=== PATIENT | female | born 1960 | race Hispanic/Latino ===

== ENCOUNTER 2018-03-16 11:21 | Inpatient (IN) | payer SELFPAY ==
[2018-03-16] MEDS ORDERED: Sodium Chloride 0.9% 1,000 ML IV STA (11:38)
--- NOTE | 2018-03-16 11:43 | ED PDOC ---
HPI: Altered Mental Status Time Seen by Provider: 03/16/18 11:32 Chief Complaint (Nursing): Altered Mental Status History Per: Family Onset/Duration Of Symptoms: Days (1) Current Symptoms Are (Timing): Still Present Additional Complaint(s): Brought by EMS accompamied by sons who state pt moaning and nonverbal since this AM. Has previous similar incidents after ? ingestion of meds, but family does not know if she took additional meds today or last night. Pt unable to provide hx due to being nonverbal. NIHSS Stroke Scale - How Severe is the Stroke Level of Consciousness: 0=Alert LOC to Questions: 2=Neither correct LOC to commands: 2=Neither correct Best Gaze: 0=Normal Visual: 0=No visual loss Facial: 0=Normal Motor Arm - Left: 0=No drift Motor Arm - Right: 0=No drift Motor Leg - Left: 0=No drift Motor Leg - Right: 0=No drift Limb Ataxia: 0=Absent Sensory: 0=Normal Best Language: 3=Mute Dysarthia: 0=Normal articulation Extinction & Inattention (Neglect): 0=Normal, no object Score: 7 Past Medical History Reviewed: Unable To Obtain Vital Signs: Last Vital Signs Temp 97.9 F 03/16/18 11:26 Pulse 94 H 03/16/18 11:26 Resp 16 03/16/18 11:26 BP 245/142 H 03/16/18 11:26 Pulse Ox 99 03/16/18 11:26 - Family History Family History: States: Unknown Family Hx - Home Medications Home Medications: Ambulatory Orders Medication Instructions Recorded Acetaminophen/Butalbital/Caf 1 tab PO Q4 PRN 03/16/18 [Fioricet] Albuterol Sulfate [Ventolin Hfa] 2 puff IH Q6 PRN 03/16/18 Baclofen [Lioresal] 10 mg PO Q12 PRN 03/16/18 Beclomethasone Dipropionate [Qvar 1 puff IH Q12 03/16/18 80 mcg] Cholecalciferol [Vitamin D 1000 IU] 1,000 unit PO DAILY 03/16/18 DULoxetine [Cymbalta] 30 mg PO DAILY 03/16/18 DULoxetine [Cymbalta] 60 mg PO DAILY 03/16/18 Doxylamine Succinate [Wal-Tyrone] 25 mg PO HS PRN 03/16/18 Famotidine [Pepcid] 20 mg PO BID 03/16/18 Gabapentin [Neurontin] 100 mg PO Q8 03/16/18 Melatonin 10 mg PO HS 03/16/18 Temazepam [Restoril] 30 mg PO HS 03/16/18 cloNIDine [Catapres] 0.3 mg PO Q12 03/16/18 clonazePAM [Klonopin] 0.5 mg PO DAILY PRN 03/16/18 - Allergies Allergies/Adverse Reactions: Allergies Allergy/AdvReac Type Severity Reaction Status Date / Time pollen extracts Allergy CONGESTION Verified 03/16/18 11:25 Review of Systems Review Of Systems: ROS cannot be obtained secondary to pt's inabilty to answer questions. Physical Exam - Reviewed Nursing Documentation Reviewed: Yes Vital Signs Reviewed: Yes - Physical Exam Appears: Positive for: Non-toxic, No Acute Distress Head Exam: Positive for: ATRAUMATIC, NORMAL INSPECTION, NORMOCEPHALIC Skin: Positive for: Normal Color, Warm, DRY Eye Exam: Positive for: EOMI, Normal appearance, PERRL ENT: Positive for: Normal ENT Inspection Neck: Positive for: Normal, Painless ROM Cardiovascular/Chest: Positive for: Regular Rate, Rhythm Respiratory: Positive for: CNT, Normal Breath Sounds Gastrointestinal/Abdominal: Positive for: Normal Exam, Soft Back: Positive for: Normal Inspection Extremity: Positive for: Normal ROM Neurologic/Psych: Positive for: Alert. Negative for: Oriented, Motor/Sensory Deficits - Laboratory Results Result Diagrams: 03/16/18 11:50 03/16/18 11:50 - ECG O2 Sat by Pulse Oximetry: 99 Disposition - Clinical Impression Clinical Impression: Altered mental status, Drug ingestion, Hypertension - Patient ED Disposition Is Patient to be Admitted: Yes - Disposition Disposition Time: 13:04 Condition: FAIR Forms: [facility] ([place]) - Pt Status Changed To: Hospital Disposition Of: Observation - POA Present On Arrival: None
[2018-03-16] MEDS ORDERED: Labetalol 5 mg/ml Inj 20ML IVP STA (11:44)
[2018-03-16] MEDS ORDERED: Labetalol 5mg/ml (4ml) ONE (11:50)
[2018-03-16 12:00] LABS: VENOUS BLOOD GAS BASE EXCESS -1.7 mmol/L (0.0-2.0); VENOUS BLOOD GAS PCO2 45 mmHg (40-60); VENOUS BLOOD GAS PO2 66 mm/Hg (30-55); VENOUS BLOOD PH 7.34 (7.32-7.43)
[2018-03-16] MEDS ORDERED: Sodium Chloride 0.9% 1,000 ML IV SCH (12:00)
--- NOTE | 2018-03-16 12:07 | CT ---
Date of service: 03/16/2018 PROCEDURE: CT HEAD WITHOUT CONTRAST. HISTORY: Altered mental status Acute onset hypertension COMPARISON: None available. TECHNIQUE: Axial computed tomography images were obtained through the head/brain without intravenous contrast. Supplemental Coronal and Sagittal projections created and reviewed. Radiation dose: Total exam DLP = 1413.41 mGy-cm. This CT exam was performed using one or more of the following dose reduction techniques: Automated exposure control, adjustment of the mA and/or kV according to patient size, and/or use of iterative reconstruction technique. FINDINGS: HEMORRHAGE: No intracranial hemorrhage. BRAIN: No mass effect or edema. No atrophy or chronic microvascular ischemic changes. VENTRICLES: Unremarkable. No hydrocephalus. CALVARIUM: Unremarkable. PARANASAL SINUSES: Unremarkable as visualized. No significant inflammatory changes. MASTOID AIR CELLS: Unremarkable as visualized. No inflammatory changes. OTHER FINDINGS: None. IMPRESSION: No acute intracranial abnormalities. No significant findings to account for the clinical presentation. Code stroke protocol: Study completed 11:54 Radiologist notified 12:03 Results conveyed verbally at 12:03. Interpretation finalized and available for review 12:06
[2018-03-16] MEDS ORDERED: Labetalol 5mg/ml (4ml) IVP STA (12:08)
[2018-03-16 12:12] LABS: BASO # 0.1 K/uL (0.0-0.2); BASO % 0.9 % (0.0-2.0); EOS # 0.1 K/uL (0.0-0.7); LYMPH # 1.4 K/uL (1.0-4.3); LYMPH % 10.3 % (20.0-40.0); MEAN CELL VOLUME 81.2 fl (81.0-99.0); MEAN CORPUSCULAR HEMOGLOBIN 24.8 pg (27.0-31.0); MEAN CORPUSCULAR HGB CONC 30.5 g/dL (33.0-37.0); MEAN PLATELET VOLUME 9.1 fl (7.2-11.7); MONO # 0.7 K/uL (0.0-0.8); NEUT % 82.8 % (50.0-75.0); NRBC % 0.1 % (0.0-0.0); RBC 5.22 Mil/uL (3.80-5.20); RED CELL DISTRIBUTION WIDTH 17.1 % (11.5-14.5); WHITE BLOOD COUNT 13.3 K/uL (4.8-10.8)
[2018-03-16] MEDS ORDERED: Naloxone 0.4 mg/ml Inj (Adult) IVP STA (12:23)
[2018-03-16 12:25] LABS: BLOOD UREA NITROGEN 12 mg/dl (7-17); CALCIUM 9.8 mg/dL (8.4-10.2); GFR NON-AFRICAN AMERICAN > 60; HDL CHOLESTEROL 79 MG/DL (30-70)
[2018-03-16 12:28] LABS: ALB/GLOB RATIO 1.1 (1.0-2.1); ALBUMIN 4.8 g/dL (3.5-5.0); ALT/SGPT 25 U/L (9-52); AST/SGOT 40 U/L (14-36)
[2018-03-16 12:29] LABS: ACETAMINOPHEN < 10.0 ug/ml (10.0-30.0); SALICYLATE < 1.0 mg/dl
[2018-03-16 12:35] LABS: LDL CHOLESTEROL 145 mg/dL (0-129)
[2018-03-16] MEDS ORDERED: Naloxone 0.4 mg/ml Inj (Adult) ONE (12:55)
[2018-03-16 12:56] LABS: PROTHROMBIN TIME 11.3 Seconds (9.8-13.1)
[2018-03-16 12:59] LABS: PARTIAL THROMBOPLASTIN TIME 34.1 Seconds (25.6-37.1)
--- NOTE | 2018-03-16 13:23 | RAD ---
Date of service: 03/16/2018 HISTORY: cough COMPARISON: No prior. FINDINGS: LUNGS: No active pulmonary disease. PLEURA: No significant pleural effusion identified, no pneumothorax apparent. CARDIOVASCULAR: No aortic atherosclerotic calcification present. Normal cardiac size. No pulmonary vascular congestion. OSSEOUS STRUCTURES: No significant abnormalities. VISUALIZED UPPER ABDOMEN: Normal. OTHER FINDINGS: None. IMPRESSION: No active disease.
[2018-03-16 13:56] LABS: BARBITURATES, UR POSITIVE (NEGATIVE); BENZODIAZEPINES, UR NEGATIVE (NEGATIVE); OPIATES, UR NEGATIVE (NEGATIVE); PHENCYCLIDINE, UR NEGATIVE (NEGATIVE)
[2018-03-16 15:24] LABS: VENOUS BLOOD GAS BASE EXCESS -2.4 mmol/L (0.0-2.0); VENOUS BLOOD GAS PCO2 42 mmHg (40-60); VENOUS BLOOD GAS PO2 143 mm/Hg (30-55); VENOUS BLOOD PH 7.35 (7.32-7.43)
[2018-03-16 15:45] LABS: ALB/GLOB RATIO 1.1 (1.0-2.1); ALBUMIN 4.3 g/dL (3.5-5.0); ALT/SGPT 30 U/L (9-52); AST/SGOT 30 U/L (14-36); BLOOD UREA NITROGEN 11 mg/dl (7-17); CALCIUM 9.4 mg/dL (8.4-10.2); GFR NON-AFRICAN AMERICAN > 60
[2018-03-16] MEDS ORDERED: Albuterol-Ipratrop 3 mg / 0.5 (3 ml) UD INH PRN (17:04)
[2018-03-16] MEDS: Labetalol 5mg/ml (4ml) IVP PRN ×2 (17:10→21:01)
[2018-03-16] MEDS ORDERED: Dextrose 5%/0.45% NS 1,000 ML IV SCH (17:15)
--- NOTE | 2018-03-16 17:38 | CP.CCUPN ---
CCU Subjective - Physician Review Subjective (Free Text): Consultation for ICU Admission, discussed with ER MD: [id number] admitted for AMS, brought in confused and not answering questions appropriately, no overall distress, nor overt discomfort noted. Initial BP reported as 250/140, treated with Labetalol and clonidine with resultant BP approx. 180/100. Further HPI unobtainable form patient given she is a poor historian and answers predominantly yes to every question. Afebrile, no fever spike, 194/97 MAP 129, HR 90, sinus, RR 22, 100% on NC. ROS: No other pertinent negs or positives on 10+ system review. Allergies: NKDA Home Meds: Fioricet, Albuterol inh, Baclofen, Beclomethasone inh, Vit D, Klonipin, Catapress, Doxylamine, Cymbalta, Pepcid, Gabapentin, Restoril. PMSFH: All other Nursing and physician documentation reviewed to date; no new pertinent info noted relevant to current medical problems. EXAM- HEENT: no icterus, no gaze preference, fundi not well visualized. NECK: No JVD visible, supple, carotids equal upstroke bilat/no bruit CHEST: decreased BS at the bases, no wheezes audible bilaterally. HEART: regular, distant, S1S2, no rubs or murmurs noted ABD: soft, obese, nontender, no guarding, no organomegaly, BS hypoactive. EXT: trace to +1 leg edema- SCDs on bilat, no calf tenderness or palpable cords, distal pulses intact NEURO: no gross focal motor deficits, + tone in all extremities. SKIN: no rashes, warm and dry LABS: WBC= 13.3 HGB= 13.0 PLTs= 419K Coags : normal 7.35/42/143 Lactate= 1.4 Na= 141 K= 5.4 CL= 112 HCO3= 20 BUN/Cr= 11/0.6 BS= 111 AP= 259 AST ALT normal UDS= + BBT CXR: (my interp)- clear, no gross consolidation CT: negative for acute path. IMPRESSION / MAJOR PROBLEMS NOW: 1. AMS 2 Delirium (hypoactive), r/o metabolic encephalopathy, doubt Sepsis Encephalopathy 2. Hypertensive urgency / Accelerated HTN 3. Hyperkalemia 4. h/o Major Depression 5. COPD PLAN: 1. Initial reduction in MAP acceptable for now. Resume Clonidine, unclear if she is compliant with home meds. Possible rebound HTN effect, too. 2. Labetalol prn if further MAP reduction required if it exceeds 120. 3. IVF hydration, check serial K levels, consider alkalinized fluid hydration. 4. Needs eventual Psych eval. Hold Cymbalta for now as well as other psychoactive meds: Klonapin, Restoril, Gabapentin, Doxylamine, Baclofen, BBTs. If mental status worsens, consider MRI, r/o PRES. 5. Duonebs for any bronchospasm or reactive airways disease exacerbation. 6. Telemetry monitoring, move to ICU if she becomes more somnolent or needs airway protection. 03/16/18 17:37
[2018-03-16] MEDS ORDERED: Labetalol 5mg/ml (4ml) IVP ONE (18:19)
[2018-03-16] MEDS: Sodium Bicarbonate 8.4% 100 MEQ in Dextrose 5% In Water 1,000 ML IV SCH (20:11)
[2018-03-16 23:14] LABS: VENOUS BLOOD GAS BASE EXCESS 1.5 mmol/L (0.0-2.0); VENOUS BLOOD GAS PCO2 46 mmHg (40-60); VENOUS BLOOD GAS PO2 87 mm/Hg (30-55); VENOUS BLOOD PH 7.38 (7.32-7.43)
[2018-03-16 23:41] LABS: BLOOD UREA NITROGEN 11 mg/dl (7-17); CALCIUM 9.3 mg/dL (8.4-10.2); GFR NON-AFRICAN AMERICAN > 60
[2018-03-16] MEDS ORDERED: Trimethobenzamide 200 mg/2 mL Inj IM ONE (23:54)
[2018-03-17] MEDS ORDERED: Povidone Iodine Topical 10% Sol ONE (00:17)
--- NOTE | 2018-03-17 00:21 | CARD ---
APPROVED REPORT Date of service: 03/16/2018 EKG Measurement Heart [id number] <Conclusion> Normal sinus rhythm Right bundle branch block Left anterior fascicular block Bifascicular block NDSTT abnormalities Abnormal ECG NPT
[2018-03-17] MEDS: Labetalol 5mg/ml (4ml) IVP PRN ×2 (01:41→16:19)
[2018-03-17] MEDS: Sodium Bicarbonate 8.4% 100 MEQ in Dextrose 5% In Water 1,000 ML IV SCH (04:37)
[2018-03-17 05:34] LABS: BASO % 0.3 % (0.0-2.0); EOS # 0.1 K/uL (0.0-0.7); EOS % 0.8 % (0.0-4.0); LYMPH # 1.8 K/uL (1.0-4.3); LYMPH % 14.3 % (20.0-40.0); MEAN CELL VOLUME 78.7 fl (81.0-99.0); MEAN CORPUSCULAR HEMOGLOBIN 25.3 pg (27.0-31.0); MEAN CORPUSCULAR HGB CONC 32.1 g/dL (33.0-37.0); MONO # 0.8 K/uL (0.0-0.8); MONO % 6.3 % (0.0-10.0); NEUT # 9.7 K/uL (1.8-7.0); NEUT % 78.3 % (50.0-75.0); RBC 4.76 Mil/uL (3.80-5.20); RED CELL DISTRIBUTION WIDTH 16.8 % (11.5-14.5); WHITE BLOOD COUNT 12.3 K/uL (4.8-10.8)
[2018-03-17] MEDS ORDERED: Sodium Bicarbonate (8.4%) 50 Meq Syringe IV ONE (05:44)
[2018-03-17 05:57] LABS: ALB/GLOB RATIO 1.1 (1.0-2.1); ALT/SGPT 35 U/L (9-52); AST/SGOT 26 U/L (14-36); BLOOD UREA NITROGEN 12 mg/dl (7-17); CALCIUM 9.3 mg/dL (8.4-10.2); GFR NON-AFRICAN AMERICAN > 60
--- NOTE | 2018-03-17 07:53 | CARD ---
APPROVED REPORT Date of service: 03/17/2018 EKG Measurement Heart [id number] <Conclusion> Normal sinus rhythm Right bundle branch block Left anterior fascicular block Bifascicular block Abnormal ECG
--- NOTE | 2018-03-17 07:55 | CARD ---
APPROVED REPORT Date of service: 03/17/2018 EKG Measurement Heart [id number] <Conclusion> Normal sinus rhythm Left axis deviation Right bundle branch block Left anterior fascicular block Abnormal ECG
--- NOTE | 2018-03-17 09:27 | CP.PCM.HP ---
<Rosey Parson - Last Filed: 03/17/18 14:21> History of Present Illness - History of Present Illness History of Present Illness: HPI: 58 YO female with PMHx of asthma (intubated in the past), HTN, multiple psychiatric conditions including depression was brought to the ER by her children after pt was found moaning and nonverbal. Family was unable to determine when the patient took additional meds. Pt was found somnolent and additional hx was not obtained from ER due to pt condition. PMHx: asthma (intubated in the past), HTN, multiple psychiatric conditions including depression, IL ? in the past per pt SurgHx: denies SHx: some days smoker 1/2 a pack a day, denies ETOH and illicit drug use FHx: HTN Allergies: NKDA Present on Admission - Present on Admission Any Indicators Present on Admission: No Review of Systems - Constitutional Constitutional: absent: Chills, Fever - Cardiovascular Cardiovascular: absent: Chest Pain, Dyspnea - Respiratory Respiratory: absent: Dyspnea - Gastrointestinal Gastrointestinal: absent: Abdominal Pain Past Patient History - Past Medical History & Family History Past Medical History?: Yes - Past Social History Smoking Status: Current Some Days Smoker Alcohol: None Drugs: Denies Home Situation {Lives}: With Family (daughter ) - CARDIAC Hx Cardiac Disorders: Yes Hx Heart Attack: Yes Hx Hypertension: Yes - PULMONARY Hx Respiratory Disorders: Yes Hx Asthma: Yes Hx Pneumonia: Yes Other/Comment: Intubated in the past - MUSCULOSKELETAL/RHEUMATOLOGICAL Hx Falls: No - PSYCHIATRIC Hx Psychophysiologic Disorder: Yes Hx Depression: Yes Hx Substance Use: Yes (Barbituates) - ANESTHESIA Hx Anesthesia: No Meds Allergies/Adverse Reactions: Allergies Allergy/AdvReac Type Severity Reaction Status Date / Time pollen extracts Allergy CONGESTION Verified 03/16/18 11:25 Physical Exam - Constitutional Appears: No Acute Distress - Head Exam Head Exam: NORMAL INSPECTION - Eye Exam Eye Exam: Normal appearance - Respiratory Exam Respiratory Exam: Decreased Breath Sounds (in the lower lobes b/l ), Clear to Auscultation Bilateral, NORMAL BREATHING PATTERN. absent: Wheezes - Cardiovascular Exam Cardiovascular Exam: REGULAR RHYTHM, +S1, +S2. absent: Irregular Rhythm - GI/Abdominal Exam GI & Abdominal Exam: Distended (obese ), Normal Bowel Sounds, Soft. absent: Tenderness - Extremities Exam Extremities exam: Positive for: normal inspection. Negative for: calf tenderness - Back Exam Back exam: NORMAL INSPECTION - Neurological Exam Neurological exam: Alert Additional comments: Awake, alert sitting in chair Oriented to person, not to place or time Results - Vital Signs Recent Vital Signs: Last Vital Signs Temp 98.9 F 03/17/18 08:00 Pulse 100 H 03/17/18 08:00 Resp 25 H 03/17/18 08:00 BP 172/84 H 03/17/18 08:00 Pulse Ox 96 03/17/18 08:00 - Labs Result Diagrams: 03/17/18 04:50 03/17/18 04:50 Labs: Laboratory Results - last 24 hr 03/16/18 03/16/18 03/16/18 11:35 11:38 11:50 WBC RBC Hgb Hct MCV MCH MCHC RDW Plt Count MPV Neut % (Auto) Lymph % (Auto) Davidson % (Auto) Eos % (Auto) Baso % (Auto) Neut # (Auto) Lymph # (Auto) Davidson # (Auto) Eos # (Auto) Baso # (Auto) PT INR APTT pO2 VBG pH VBG pCO2 VBG HCO3 VBG Total CO2 VBG O2 Sat (Calc) VBG Base Excess VBG Potassium Glucose Lactate FiO2 Sodium 141 Potassium 5.1 H Chloride 109 H Carbon Dioxide 22 Anion Gap 15 BUN 12 Creatinine 0.7 Est GFR ( Amer) > 60 Est GFR (Non-Af Amer) > 60 POC Glucose (mg/dL) 132 H Random Glucose 127 H Hemoglobin A1c 6.1 Lactic Acid Calcium 9.8 Phosphorus Magnesium Total Bilirubin 0.8 AST 40 H ALT 25 Alkaline Phosphatase 259 H Ammonia Troponin I 0.0680 Total Protein 9.2 H Albumin 4.8 Globulin 4.4 H Albumin/Globulin Ratio 1.1 Triglycerides 99 Cholesterol 235 H LDL Cholesterol Direct 145 H HDL Cholesterol 79 H Venous Blood Potassium Salicylates Urine Opiates Screen Urine Methadone Screen Acetaminophen Ur Barbiturates Screen Ur Phencyclidine Scrn Ur Amphetamines Screen U Benzodiazepines Scrn U Oth Cocaine Metabols U Cannabinoids Screen Alcohol, Quantitative < 10 03/16/18 03/16/18 03/16/18 11:50 11:50 11:55 WBC 13.3 H RBC 5.22 H Hgb 13.0 Hct 42.4 MCV 81.2 MCH 24.8 L MCHC 30.5 L RDW 17.1 H Plt Count 419 H MPV 9.1 Neut % (Auto) 82.8 H Lymph % (Auto) 10.3 L Davidson % (Auto) 5.0 Eos % (Auto) 1.0 Baso % (Auto) 0.9 Neut # (Auto) 11.0 H Lymph # (Auto) 1.4 Davidson # (Auto) 0.7 Eos # (Auto) 0.1 Baso # (Auto) 0.1 PT 11.3 INR 1.0 APTT 34.1 pO2 66 H VBG pH 7.34 VBG pCO2 45 VBG HCO3 23.4 VBG Total CO2 25.7 VBG O2 Sat (Calc) 95.6 H VBG Base Excess -1.7 L VBG Potassium 4.4 Glucose 128 H Lactate 1.0 FiO2 21.0 Sodium 140.0 Potassium Chloride 108.0 H Carbon Dioxide Anion Gap BUN Creatinine Est GFR ( Amer) Est GFR (Non-Af Amer) POC Glucose (mg/dL) Random Glucose Hemoglobin A1c Lactic Acid Calcium Phosphorus Magnesium Total Bilirubin AST ALT Alkaline Phosphatase Ammonia Troponin I Total Protein Albumin Globulin Albumin/Globulin Ratio Triglycerides Cholesterol LDL Cholesterol Direct HDL Cholesterol Venous Blood Potassium 4.4 Salicylates Urine Opiates Screen Urine Methadone Screen Acetaminophen Ur Barbiturates Screen Ur Phencyclidine Scrn Ur Amphetamines Screen U Benzodiazepines Scrn U Oth Cocaine Metabols U Cannabinoids Screen Alcohol, Quantitative 03/16/18 03/16/18 03/16/18 12:00 12:38 12:45 WBC RBC Hgb Hct MCV MCH MCHC RDW Plt Count MPV Neut % (Auto) Lymph % (Auto) Davidson % (Auto) Eos % (Auto) Baso % (Auto) Neut # (Auto) Lymph # (Auto) Davidson # (Auto) Eos # (Auto) Baso # (Auto) PT INR APTT pO2 VBG pH VBG pCO2 VBG HCO3 VBG Total CO2 VBG O2 Sat (Calc) VBG Base Excess VBG Potassium Glucose Lactate FiO2 Sodium Potassium Chloride Carbon Dioxide Anion Gap BUN Creatinine Est GFR ( Amer) Est GFR (Non-Af Amer) POC Glucose (mg/dL) Random Glucose Hemoglobin A1c Lactic Acid Calcium Phosphorus Magnesium Total Bilirubin AST ALT Alkaline Phosphatase Ammonia 18 Troponin I Total Protein Albumin Globulin Albumin/Globulin Ratio Triglycerides Cholesterol LDL Cholesterol Direct HDL Cholesterol Venous Blood Potassium Salicylates < 1.0 Urine Opiates Screen Negative Urine Methadone Screen Negative Acetaminophen < 10.0 L Ur Barbiturates Screen Positive H Ur Phencyclidine Scrn Negative Ur Amphetamines Screen Negative U Benzodiazepines Scrn Negative U Oth Cocaine Metabols Negative U Cannabinoids Screen Negative Alcohol, Quantitative 03/16/18 03/16/18 03/16/18 15:19 15:20 23:11 WBC RBC Hgb Hct MCV MCH MCHC RDW Plt Count MPV Neut % (Auto) Lymph % (Auto) Davidson % (Auto) Eos % (Auto) Baso % (Auto) Neut # (Auto) Lymph # (Auto) Davidson # (Auto) Eos # (Auto) Baso # (Auto) PT INR APTT pO2 143 H 87 H VBG pH 7.35 7.38 VBG pCO2 42 46 VBG HCO3 23.1 26.1 VBG Total CO2 24.5 28.6 H VBG O2 Sat (Calc) 100.5 H 98.7 H VBG Base Excess -2.4 L 1.5 VBG Potassium 5.2 4.4 Glucose 108 H 136 H Lactate 1.4 0.8 FiO2 21.0 21.0 Sodium 141 138.0 138.0 Potassium 5.4 H Chloride 112 H 110.0 H 109.0 H Carbon Dioxide 20 L Anion Gap 14 BUN 11 Creatinine 0.6 L Est GFR ( Amer) > 60 Est GFR (Non-Af Amer) > 60 POC Glucose (mg/dL) Random Glucose 111 H Hemoglobin A1c Lactic Acid Calcium 9.4 Phosphorus Magnesium 2.4 H Total Bilirubin 0.5 AST 30 ALT 30 Alkaline Phosphatase 223 H Ammonia Troponin I Total Protein 8.1 Albumin 4.3 Globulin 3.8 Albumin/Globulin Ratio 1.1 Triglycerides Cholesterol LDL Cholesterol Direct HDL Cholesterol Venous Blood Potassium 5.2 4.4 Salicylates Urine Opiates Screen Urine Methadone Screen Acetaminophen Ur Barbiturates Screen Ur Phencyclidine Scrn Ur Amphetamines Screen U Benzodiazepines Scrn U Oth Cocaine Metabols U Cannabinoids Screen Alcohol, Quantitative 03/16/18 03/17/18 03/17/18 23:21 04:50 04:50 WBC 12.3 H RBC 4.76 Hgb 12.0 Hct 37.5 MCV 78.7 L D MCH 25.3 L MCHC 32.1 L RDW 16.8 H Plt Count 401 H MPV 9.0 Neut % (Auto) 78.3 H Lymph % (Auto) 14.3 L Davidson % (Auto) 6.3 Eos % (Auto) 0.8 Baso % (Auto) 0.3 Neut # (Auto) 9.7 H Lymph # (Auto) 1.8 Davidson # (Auto) 0.8 Eos # (Auto) 0.1 Baso # (Auto) 0.0 PT INR APTT pO2 VBG pH VBG pCO2 VBG HCO3 VBG Total CO2 VBG O2 Sat (Calc) VBG Base Excess VBG Potassium Glucose Lactate FiO2 Sodium 140 140 Potassium 4.6 4.1 Chloride 107 105 Carbon Dioxide 27 27 Anion Gap 11 12 BUN 11 12 Creatinine 0.6 L 0.7 Est GFR ( Amer) > 60 > 60 Est GFR (Non-Af Amer) > 60 > 60 POC Glucose (mg/dL) Random Glucose 136 H 131 H Hemoglobin A1c Lactic Acid Calcium 9.3 9.3 Phosphorus 2.9 Magnesium 2.3 Total Bilirubin 0.2 AST 26 ALT 35 Alkaline Phosphatase 199 H Ammonia Troponin I Total Protein 7.7 Albumin 4.0 Globulin 3.6 Albumin/Globulin Ratio 1.1 Triglycerides Cholesterol LDL Cholesterol Direct HDL Cholesterol Venous Blood Potassium Salicylates Urine Opiates Screen Urine Methadone Screen Acetaminophen Ur Barbiturates Screen Ur Phencyclidine Scrn Ur Amphetamines Screen U Benzodiazepines Scrn U Oth Cocaine Metabols U Cannabinoids Screen Alcohol, Quantitative 03/17/18 04:50 WBC RBC Hgb Hct MCV MCH MCHC RDW Plt Count MPV Neut % (Auto) Lymph % (Auto) Davidson % (Auto) Eos % (Auto) Baso % (Auto) Neut # (Auto) Lymph # (Auto) Davidson # (Auto) Eos # (Auto) Baso # (Auto) PT INR APTT pO2 VBG pH VBG pCO2 VBG HCO3 VBG Total CO2 VBG O2 Sat (Calc) VBG Base Excess VBG Potassium Glucose Lactate FiO2 Sodium Potassium Chloride Carbon Dioxide Anion Gap BUN Creatinine Est GFR ( Amer) Est GFR (Non-Af Amer) POC Glucose (mg/dL) Random Glucose Hemoglobin A1c Lactic Acid 1.1 Calcium Phosphorus Magnesium Total Bilirubin AST ALT Alkaline Phosphatase Ammonia Troponin I Total Protein Albumin Globulin Albumin/Globulin Ratio Triglycerides Cholesterol LDL Cholesterol Direct HDL Cholesterol Venous Blood Potassium Salicylates Urine Opiates Screen Urine Methadone Screen Acetaminophen Ur Barbiturates Screen Ur Phencyclidine Scrn Ur Amphetamines Screen U Benzodiazepines Scrn U Oth Cocaine Metabols U Cannabinoids Screen Alcohol, Quantitative Assessment & Plan (1) Hypertensive urgency Status: Acute (2) Altered mental status Status: Acute (3) Drug ingestion Status: Acute (4) RBBB Status: Chronic - Assessment and Plan (Free Text) Assessment: Assessment/Plan: 58 YO Female with PMHx of asthma (intubated in the past), HTN, multiple psychiatric conditions including depression is admitted after ingestion of unknown drug (TCA?), and AMS. AMS -acute, improving. More verbal today, expanded vocabulary -likely 2/2 to Ingestion of drug vs Hypertensive encephalopathy -CT head no acute intracranial findings -neurology on board, follow up recs -Utox sig for positive barbiturates -s/p administration of narcan with no resolution of the symptoms Drug ingestion -accidental vs suicidal, AMS -hx of depression -hold psychotropic meds for now given AMS -psych consulted; follow up recs EKG changes -wide QRS with RBBB -acute vs chronic -likely 2/2 to drug ingestion, vs old [place]? -cardiology consulted, follow up recs -echo pending HTN Emergency -acute on chronic -likely 2/2 med non-compliance -c/w clonidine, labatalol and hydralazine as needed for Bp management Hyperkalemia -resolved DVT prolx -Lovenox SC -SCDs <Ulises Kemp - Last Filed: 03/17/18 15:14> Results - Vital Signs Recent Vital Signs: Last Vital Signs Temp 98.5 F 03/17/18 12:00 Pulse 94 H 03/17/18 14:00 Resp 19 03/17/18 14:00 BP 180/69 H 03/17/18 14:00 Pulse Ox 96 03/17/18 14:00 - Labs Result Diagrams: 03/17/18 04:50 03/17/18 04:50 Labs: Laboratory Results - last 24 hr 03/16/18 03/16/18 03/16/18 11:38 15:19 15:20 WBC RBC Hgb Hct MCV MCH MCHC RDW Plt Count MPV Neut % (Auto) Lymph % (Auto) Davidson % (Auto) Eos % (Auto) Baso % (Auto) Neut # (Auto) Lymph # (Auto) Davidson # (Auto) Eos # (Auto) Baso # (Auto) pO2 143 H VBG pH 7.35 VBG pCO2 42 VBG HCO3 23.1 VBG Total CO2 24.5 VBG O2 Sat (Calc) 100.5 H VBG Base Excess -2.4 L VBG Potassium 5.2 Glucose 108 H Lactate 1.4 FiO2 21.0 Sodium 141 138.0 Potassium 5.4 H Chloride 112 H 110.0 H Carbon Dioxide 20 L Anion Gap 14 BUN 11 Creatinine 0.6 L Est GFR ( Amer) > 60 Est GFR (Non-Af Amer) > 60 Random Glucose 111 H Hemoglobin A1c 6.1 Lactic Acid Calcium 9.4 Phosphorus Magnesium 2.4 H Total Bilirubin 0.5 AST 30 ALT 30 Alkaline Phosphatase 223 H Total Protein 8.1 Albumin 4.3 Globulin 3.8 Albumin/Globulin Ratio 1.1 Venous Blood Potassium 5.2 03/16/18 03/16/18 03/17/18 23:11 23:21 04:50 WBC 12.3 H RBC 4.76 Hgb 12.0 Hct 37.5 MCV 78.7 L D MCH 25.3 L MCHC 32.1 L RDW 16.8 H Plt Count 401 H MPV 9.0 Neut % (Auto) 78.3 H Lymph % (Auto) 14.3 L Davidson % (Auto) 6.3 Eos % (Auto) 0.8 Baso % (Auto) 0.3 Neut # (Auto) 9.7 H Lymph # (Auto) 1.8 Davidson # (Auto) 0.8 Eos # (Auto) 0.1 Baso # (Auto) 0.0 pO2 87 H VBG pH 7.38 VBG pCO2 46 VBG HCO3 26.1 VBG Total CO2 28.6 H VBG O2 Sat (Calc) 98.7 H VBG Base Excess 1.5 VBG Potassium 4.4 Glucose 136 H Lactate 0.8 FiO2 21.0 Sodium 138.0 140 Potassium 4.6 Chloride 109.0 H 107 Carbon Dioxide 27 Anion Gap 11 BUN 11 Creatinine 0.6 L Est GFR ( Amer) > 60 Est GFR (Non-Af Amer) > 60 Random Glucose 136 H Hemoglobin A1c Lactic Acid Calcium 9.3 Phosphorus Magnesium Total Bilirubin AST ALT Alkaline Phosphatase Total Protein Albumin Globulin Albumin/Globulin Ratio Venous Blood Potassium 4.4 03/17/18 03/17/18 04:50 04:50 WBC RBC Hgb Hct MCV MCH MCHC RDW Plt Count MPV Neut % (Auto) Lymph % (Auto) Davidson % (Auto) Eos % (Auto) Baso % (Auto) Neut # (Auto) Lymph # (Auto) Davidson # (Auto) Eos # (Auto) Baso # (Auto) pO2 VBG pH VBG pCO2 VBG HCO3 VBG Total CO2 VBG O2 Sat (Calc) VBG Base Excess VBG Potassium Glucose Lactate FiO2 Sodium 140 Potassium 4.1 Chloride 105 Carbon Dioxide 27 Anion Gap 12 BUN 12 Creatinine 0.7 Est GFR ( Amer) > 60 Est GFR (Non-Af Amer) > 60 Random Glucose 131 H Hemoglobin A1c Lactic Acid 1.1 Calcium 9.3 Phosphorus 2.9 Magnesium 2.3 Total Bilirubin 0.2 AST 26 ALT 35 Alkaline Phosphatase 199 H Total Protein 7.7 Albumin 4.0 Globulin 3.6 Albumin/Globulin Ratio 1.1 Venous Blood Potassium Assessment & Plan - Assessment and Plan (Free Text) Plan: I was present during evalaution and discussed with Dr Parson re plans of care and mgt. Ulises Kemp M.D.
--- NOTE | 2018-03-17 12:38 | CP.PCM.CON ---
History of Present Illness - History of Present Illness History of Present Illness: I was asked to see patient by Dr Kemp. Patient seen 03/17/18 1200 Patient is a 58 year old female with HTn psychiatric disorder who presents with altered mental status. Her family though she may have overdosed on prescription medication. The patient was found to have a bundle branch block on EKG. consultation requested. patient denies chest pain, dyspnea syncope. Review of Systems - Constitutional Constitutional: absent: As Per HPI, Anorexia, Chills, Daytime Sleepiness, Excessive Sweating, Fatigue, Fever, Frequent Falls, Headache, Increased Appetite, Lethargy, Malaise, Night Sweats, Snoring, Sleep Apnea, Weight Gain, Weight Loss, Weakness, Other - EENT Eyes: absent: As Per HPI, Blind Spots, Blurred Vision, Change in Vision, Decreased Night Vision, Diplopia, Discharge, Dry Eye, Exophthalmos, Floaters, Irritation, Itchy Eyes, Loss of Peripheral Vision, Pain, Photophobia, Requires Corrective Lenses, Sees Flashes, Spots in Vision, Tunnel Vision, Other Visual Disturbances, Loss of Vision, Other Ears: absent: As Per HPI, Decreased Hearing, Ear Discharge, Ear Pain, Tinnitus, Abnormal Hearing, Disequilibrium, Dizziness, Other Nose/Mouth/Throat: absent: As Per HPI, Epistaxis, Nasal Congestion, Nasal Discharge, Nasal Obstruction, Nasal Trauma, Nose Pain, Post Nasal Drip, Sinus Pain, Sinus Pressure, Bleeding Gums, Change in Voice, Dental Pain, Dry Mouth, Dysphagia, Halitosis, Hoarsness, Lip Swelling, Mouth Lesions, Mouth Pain, Odynophagia, Sore Throat, Throat Swelling, Tongue Swelling, Facial Pain, Neck Pain, Neck Mass, Other - Cardiovascular Cardiovascular: absent: As Per HPI, Acrocyanosis, Chest Pain, Chest Pain at Rest, Chest Pain with Activity, Claudication, Diaphoresis, Dyspnea, Dyspnea on Exertion, Edema, Irregular Heart Rhythm, Pain Radiating to Arm/Neck/Jaw, Leg Edema, Leg Ulcers, Lightheadedness, Orthopnea, Palpitations, Paroxysmal Nocturnal Dyspnea, Pedal Edema, Radiating Pain, Rapid Heart Rate, Slow Heart Rate, Syncope, Other - Respiratory Respiratory: absent: As Per HPI, Cough, Dyspnea, Hemoptysis, Dyspnea on Exertion, Wheezing, Snoring, Stridor, Pain on Inspiration, Chest Congestion, Excessive Mucous Production, Change in Mucous Color, Pain with Coughing, Other - Gastrointestinal Gastrointestinal: absent: As Per HPI, Abdominal Pain, Belching, Bloating, Change in Bowel Habits, Change in Stool Character, Coffee Ground Emesis, Constipation, Cramping, Diarrhea, Dyspepsia, Dysphagia, Early Satiety, Excessive Flatus, Fecal Incontinence, Heartburn, Hematemesis, Hematochezia, Loose Stools, Melena, Nausea, Odynophagia, Temesmus, Vomiting, Other - Genitourinary Genitourinary: absent: As Per HPI, Change in Urinary Stream, Difficulty Urinating, Dysuria, Flank Pain, Hematuria, Pyuria, Nocturia, Urinary Incontinence, Urinary Frequency, Urinary Hesitance, Urinary Urgency, Voiding Freq/Small Amts, Freq UTI, Hx Renal/Bladder Calculi, Hx /Renal Surgery, Bladder Distension, Other - Musculoskeletal Musculoskeletal: absent: As Per HPI, Abnormal Gait, Arthralgias, Atrophy, Back Pain, Deformity, Joint Swelling, Limited Range of Motion, Loss of Height, Muscle Cramps, Muscle Weakness, Myalgias, Neck Pain, Numbness, Radiating Pain into Limb, Stiffness, Tingling, Other - Integumentary Integumentary: absent: As Per HPI, Acne, Alopecia, Bleeding Lesions, Change in Hair, Change in Nails, Change in Pigmentation, Changing Lesions, Dry Skin, Erythema, Furuncle, Hirsutism, Lesions, New Lesions, Non-Healing Lesions, Photosensitivity, Pruritus, Rash, Skin Pain, Skin Ulcer, Sores, Striae, Swelling, Unusual Bruising, Wounds, Jaundice, Other - Neurological Neurological: absent: As Per HPI, Abnormal Gait, Abnormal Hearing, Abnormal Movements, Abnormal Speech, Behavioral Changes, Burning Sensations, Confusion, Convulsions, Disequilibrium, Dizziness, Numbness, Focal Weakness, Frequent Falls, Headaches, Lack of Coordination, Loss of Vision, Memory Loss, Paresthesias, Radicular Pain, Restless Legs, Sensory Deficit, Syncope, Tingling, Tremor, Vertigo, Weakness, Other Visual Disturbances, Other - Psychiatric Psychiatric: absent: As Per HPI, Abnormal Sleep Pattern, Anhedonia, Anxiety, Auditory Hallucinations, Behavioral Changes, Change in Appetite, Change in Libido, Confusion, Depression, Difficulty Concentrating, Hallucinations, Homicidal Ideation, Hopelessness, Irritability, Memory Loss, Mood Swings, Panic Attacks, Paranoia, Suicidal Ideation, Visual Hallucinations, Tactile Hallucinations, Other - Endocrine Endocrine: absent: As Per HPI, Change in Body Appearance, Change in Libido, Cold Intolorance, Deepening of Voice, Excessive Sweating, Fatigue, Flushing, Heat Intolorance, Increase in Ring/Shoe/Hat Size, Palpitations, Polydipsia, Polyphagia, Polyuria, Other - Hematologic/Lymphatic Hematologic: absent: As Per HPI, Easy Bleeding, Easy Bruising, Lymphadenopathy, Other Past Patient History - Past Medical History & Family History Past Medical History?: Yes - Past Social History Smoking Status: Current Some Days Smoker Alcohol: None Drugs: Denies Home Situation {Lives}: With Family - CARDIAC Hx Cardiac Disorders: Yes Hx Heart Attack: Yes Hx Hypertension: Yes - PULMONARY Hx Respiratory Disorders: Yes Hx Asthma: Yes Hx Pneumonia: Yes Other/Comment: Intubated in the past - MUSCULOSKELETAL/RHEUMATOLOGICAL Hx Falls: No - PSYCHIATRIC Hx Psychophysiologic Disorder: Yes Hx Depression: Yes Hx Substance Use: Yes (Barbituates) - ANESTHESIA Hx Anesthesia: No Meds Allergies/Adverse Reactions: Allergies Allergy/AdvReac Type Severity Reaction Status Date / Time pollen extracts Allergy CONGESTION Verified 03/16/18 11:25 - Medications Medications: Current Medications Albuterol/Ipratropium (Duoneb 3 Mg/0.5 Mg (3 Ml) Ud) 3 ml INH RQ4 PRN PRN Reason: Shortness of Breath Clonidine HCl (Catapres-Tts3 0.3 Mg/24 Hr) 1 patch TD Q7D [facility] Last Admin: 03/16/18 17:15 Dose: 1 patch Hydralazine HCl (Apresoline) 10 mg IV Q6 PRN PRN Reason: Systolic Blood Pressure Last Admin: 03/17/18 05:12 Dose: 10 mg Sodium Bicarbonate 100 meq/ (Dextrose) 1,100 mls @ 125 mls/hr IV .[id number] [facility] Stop: 03/17/18 18:37 Last Admin: 03/17/18 04:37 Dose: 125 mls/hr Labetalol HCl (Trandate) 20 mg IVP Q4 PRN PRN Reason: Systolic Blood Pressure Last Admin: 03/17/18 01:41 Dose: 20 mg Pantoprazole Sodium (Protonix Inj) 40 mg IVP DAILY [facility] Last Admin: 03/17/18 08:50 Dose: 40 mg Physical Exam - Constitutional Appears: Non-toxic - Head Exam Head Exam: NORMAL INSPECTION - Eye Exam Eye Exam: Normal appearance - ENT Exam ENT Exam: Mucous Membranes Moist - Neck Exam Neck exam: Positive for: Full Rom - Respiratory Exam Respiratory Exam: NORMAL BREATHING PATTERN - Cardiovascular Exam Cardiovascular Exam: REGULAR RHYTHM - Rectal Exam Rectal Exam: Deferred - Extremities Exam Extremities exam: Negative for: pedal edema - Back Exam Back exam: NORMAL INSPECTION - Neurological Exam Neurological exam: Alert, Oriented x3 - Psychiatric Exam Psychiatric exam: Normal Affect - Skin Skin Exam: Normal Color Results - Vital Signs Recent Vital Signs: Last Vital Signs Temp 98.5 F 03/17/18 12:00 Pulse 95 H 03/17/18 12:00 Resp 28 H 03/17/18 12:00 BP 173/93 H 03/17/18 12:00 Pulse Ox 95 03/17/18 12:00 - Labs Result Diagrams: 03/17/18 04:50 03/17/18 04:50 Labs: Laboratory Results - last 24 hr 03/16/18 03/16/18 03/16/18 11:38 11:50 11:50 WBC RBC Hgb Hct MCV MCH MCHC RDW Plt Count MPV Neut % (Auto) Lymph % (Auto) [place] % (Auto) Eos % (Auto) Baso % (Auto) Neut # (Auto) Lymph # (Auto) [place] # (Auto) Eos # (Auto) Baso # (Auto) PT 11.3 INR 1.0 APTT 34.1 pO2 VBG pH VBG pCO2 VBG HCO3 VBG Total CO2 VBG O2 Sat (Calc) VBG Base Excess VBG Potassium Glucose Lactate FiO2 Sodium Potassium Chloride Carbon Dioxide Anion Gap BUN Creatinine Est GFR ( Amer) Est GFR (Non-Af Amer) Random Glucose Hemoglobin A1c 6.1 Lactic Acid Calcium Phosphorus Magnesium Total Bilirubin AST ALT Alkaline Phosphatase Ammonia Troponin I 0.0680 Total Protein Albumin Globulin Albumin/Globulin Ratio LDL Cholesterol Direct 145 H Venous Blood Potassium Urine Opiates Screen Urine Methadone Screen Ur Barbiturates Screen Ur Phencyclidine Scrn Ur Amphetamines Screen U Benzodiazepines Scrn U Oth Cocaine Metabols U Cannabinoids Screen 03/16/18 03/16/18 03/16/18 12:38 12:45 15:19 WBC RBC Hgb Hct MCV MCH MCHC RDW Plt Count MPV Neut % (Auto) Lymph % (Auto) [place] % (Auto) Eos % (Auto) Baso % (Auto) Neut # (Auto) Lymph # (Auto) [place] # (Auto) Eos # (Auto) Baso # (Auto) PT INR APTT pO2 VBG pH VBG pCO2 VBG HCO3 VBG Total CO2 VBG O2 Sat (Calc) VBG Base Excess VBG Potassium Glucose Lactate FiO2 Sodium 141 Potassium 5.4 H Chloride 112 H Carbon Dioxide 20 L Anion Gap 14 BUN 11 Creatinine 0.6 L Est GFR ( Amer) > 60 Est GFR (Non-Af Amer) > 60 Random Glucose 111 H Hemoglobin A1c Lactic Acid Calcium 9.4 Phosphorus Magnesium 2.4 H Total Bilirubin 0.5 AST 30 ALT 30 Alkaline Phosphatase 223 H Ammonia 18 Troponin I Total Protein 8.1 Albumin 4.3 Globulin 3.8 Albumin/Globulin Ratio 1.1 LDL Cholesterol Direct Venous Blood Potassium Urine Opiates Screen Negative Urine Methadone Screen Negative Ur Barbiturates Screen Positive H Ur Phencyclidine Scrn Negative Ur Amphetamines Screen Negative U Benzodiazepines Scrn Negative U Oth Cocaine Metabols Negative U Cannabinoids Screen Negative 03/16/18 03/16/18 03/16/18 15:20 23:11 23:21 WBC RBC Hgb Hct MCV MCH MCHC RDW Plt Count MPV Neut % (Auto) Lymph % (Auto) [place] % (Auto) Eos % (Auto) Baso % (Auto) Neut # (Auto) Lymph # (Auto) [place] # (Auto) Eos # (Auto) Baso # (Auto) PT INR APTT pO2 143 H 87 H VBG pH 7.35 7.38 VBG pCO2 42 46 VBG HCO3 23.1 26.1 VBG Total CO2 24.5 28.6 H VBG O2 Sat (Calc) 100.5 H 98.7 H VBG Base Excess -2.4 L 1.5 VBG Potassium 5.2 4.4 Glucose 108 H 136 H Lactate 1.4 0.8 FiO2 21.0 21.0 Sodium 138.0 138.0 140 Potassium 4.6 Chloride 110.0 H 109.0 H 107 Carbon Dioxide 27 Anion Gap 11 BUN 11 Creatinine 0.6 L Est GFR ( Amer) > 60 Est GFR (Non-Af Amer) > 60 Random Glucose 136 H Hemoglobin A1c Lactic Acid Calcium 9.3 Phosphorus Magnesium Total Bilirubin AST ALT Alkaline Phosphatase Ammonia Troponin I Total Protein Albumin Globulin Albumin/Globulin Ratio LDL Cholesterol Direct Venous Blood Potassium 5.2 4.4 Urine Opiates Screen Urine Methadone Screen Ur Barbiturates Screen Ur Phencyclidine Scrn Ur Amphetamines Screen U Benzodiazepines Scrn U Oth Cocaine Metabols U Cannabinoids Screen 03/17/18 03/17/18 03/17/18 04:50 04:50 04:50 WBC 12.3 H RBC 4.76 Hgb 12.0 Hct 37.5 MCV 78.7 L D MCH 25.3 L MCHC 32.1 L RDW 16.8 H Plt Count 401 H MPV 9.0 Neut % (Auto) 78.3 H Lymph % (Auto) 14.3 L [place] % (Auto) 6.3 Eos % (Auto) 0.8 Baso % (Auto) 0.3 Neut # (Auto) 9.7 H Lymph # (Auto) 1.8 [place] # (Auto) 0.8 Eos # (Auto) 0.1 Baso # (Auto) 0.0 PT INR APTT pO2 VBG pH VBG pCO2 VBG HCO3 VBG Total CO2 VBG O2 Sat (Calc) VBG Base Excess VBG Potassium Glucose Lactate FiO2 Sodium 140 Potassium 4.1 Chloride 105 Carbon Dioxide 27 Anion Gap 12 BUN 12 Creatinine 0.7 Est GFR ( Amer) > 60 Est GFR (Non-Af Amer) > 60 Random Glucose 131 H Hemoglobin A1c Lactic Acid 1.1 Calcium 9.3 Phosphorus 2.9 Magnesium 2.3 Total Bilirubin 0.2 AST 26 ALT 35 Alkaline Phosphatase 199 H Ammonia Troponin I Total Protein 7.7 Albumin 4.0 Globulin 3.6 Albumin/Globulin Ratio 1.1 LDL Cholesterol Direct Venous Blood Potassium Urine Opiates Screen Urine Methadone Screen Ur Barbiturates Screen Ur Phencyclidine Scrn Ur Amphetamines Screen U Benzodiazepines Scrn U Oth Cocaine Metabols U Cannabinoids Screen - EKG Data EKG Interpreted by: Myself EKG shows normal: Sinus rhythm - EKG Data EKG Specific Queries Ralph/QRS: Bifasicular Block Assessment & Plan - Assessment and Plan (Free Text) Assessment: Bifascicular block Patient likely has old bifasciculat block. This is unlikley due to overdose. echocardiogram reveasl normal left ventriuclar function. no furhter workup at this time. consider outpatient stress test HTN medical therapy is recommended
--- NOTE | 2018-03-17 12:44 | CP.PCM.CON ---
History of Present Illness - History of Present Illness History of Present Illness: pt is a 58 YO female with PMHx of asthma (intubated in the past), HTN, was brought to the ER by her children after pt was found moaning and nonverbal. Family was unable to determine when the patient took additional meds. pt on evaluation confused and unable to provide history, on reviewing the chart it is noted that the pt is on cymbalta and klonpin , urine toxicology was positive for barbiturates on interviewing the patient she is oriented to person only , reported that the month is December, and the season is summer, unable to provide information why she is in thehospital, stated feeling tired and confused, unable to explain the source of barbiturates in her urine, stated that the psychotropics are provided by her PMD, denied having previous psychiatric hospitalizations and denied any current thoughts or intent of self harm, denied perceptual disturbances Past Patient History - Past Medical History & Family History Past Medical History?: Yes - Past Social History Smoking Status: Current Some Days Smoker Alcohol: None Drugs: Denies Home Situation {Lives}: With Family - CARDIAC Hx Cardiac Disorders: Yes Hx Heart Attack: Yes Hx Hypertension: Yes - PULMONARY Hx Respiratory Disorders: Yes Hx Asthma: Yes Hx Pneumonia: Yes Other/Comment: Intubated in the past - MUSCULOSKELETAL/RHEUMATOLOGICAL Hx Falls: No - PSYCHIATRIC Hx Psychophysiologic Disorder: Yes Hx Depression: Yes Hx Substance Use: Yes (Barbituates) - ANESTHESIA Hx Anesthesia: No Meds Allergies/Adverse Reactions: Allergies Allergy/AdvReac Type Severity Reaction Status Date / Time pollen extracts Allergy CONGESTION Verified 03/16/18 11:25 - Medications Medications: Current Medications Albuterol/Ipratropium (Duoneb 3 Mg/0.5 Mg (3 Ml) Ud) 3 ml INH RQ4 PRN PRN Reason: Shortness of Breath Clonidine HCl (Catapres-Tts3 0.3 Mg/24 Hr) 1 patch TD Q7D [facility] Last Admin: 03/16/18 17:15 Dose: 1 patch Hydralazine HCl (Apresoline) 10 mg IV Q6 PRN PRN Reason: Systolic Blood Pressure Last Admin: 03/17/18 05:12 Dose: 10 mg Sodium Bicarbonate 100 meq/ (Dextrose) 1,100 mls @ 125 mls/hr IV .Q8H48M [facility] Stop: 03/17/18 18:37 Last Admin: 03/17/18 04:37 Dose: 125 mls/hr Labetalol HCl (Trandate) 20 mg IVP Q4 PRN PRN Reason: Systolic Blood Pressure Last Admin: 03/17/18 01:41 Dose: 20 mg Pantoprazole Sodium (Protonix Inj) 40 mg IVP DAILY [facility] Last Admin: 03/17/18 08:50 Dose: 40 mg Physical Exam - Psychiatric Exam Additional comments: pt seen in bed confused, drowzy, speech underproductive, mood reported tired affect anxious, thought form not goal directed , denied suicidal or homicidal ideation, denied perceptual disturbances, oriented to person only Results - Vital Signs Recent Vital Signs: Last Vital Signs Temp 98.9 F 03/17/18 08:00 Pulse 100 H 03/17/18 08:00 Resp 25 H 03/17/18 08:00 BP 172/84 H 03/17/18 08:00 Pulse Ox 96 03/17/18 08:00 - Labs Result Diagrams: 03/17/18 04:50 03/17/18 04:50 Labs: Laboratory Results - last 24 hr 03/16/18 03/16/18 03/16/18 11:38 11:50 11:50 WBC RBC Hgb Hct MCV MCH MCHC RDW Plt Count MPV Neut % (Auto) Lymph % (Auto) [place] % (Auto) Eos % (Auto) Baso % (Auto) Neut # (Auto) Lymph # (Auto) [place] # (Auto) Eos # (Auto) Baso # (Auto) PT 11.3 INR 1.0 APTT 34.1 pO2 VBG pH VBG pCO2 VBG HCO3 VBG Total CO2 VBG O2 Sat (Calc) VBG Base Excess VBG Potassium Glucose Lactate FiO2 Sodium Potassium Chloride Carbon Dioxide Anion Gap BUN Creatinine Est GFR ( Amer) Est GFR (Non-Af Amer) Random Glucose Hemoglobin A1c 6.1 Lactic Acid Calcium Phosphorus Magnesium Total Bilirubin AST ALT Alkaline Phosphatase Ammonia Troponin I 0.0680 Total Protein Albumin Globulin Albumin/Globulin Ratio LDL Cholesterol Direct 145 H Venous Blood Potassium Urine Opiates Screen Urine Methadone Screen Ur Barbiturates Screen Ur Phencyclidine Scrn Ur Amphetamines Screen U Benzodiazepines Scrn U Oth Cocaine Metabols U Cannabinoids Screen 03/16/18 03/16/18 03/16/18 12:38 12:45 15:19 WBC RBC Hgb Hct MCV MCH MCHC RDW Plt Count MPV Neut % (Auto) Lymph % (Auto) [place] % (Auto) Eos % (Auto) Baso % (Auto) Neut # (Auto) Lymph # (Auto) [place] # (Auto) Eos # (Auto) Baso # (Auto) PT INR APTT pO2 VBG pH VBG pCO2 VBG HCO3 VBG Total CO2 VBG O2 Sat (Calc) VBG Base Excess VBG Potassium Glucose Lactate FiO2 Sodium 141 Potassium 5.4 H Chloride 112 H Carbon Dioxide 20 L Anion Gap 14 BUN 11 Creatinine 0.6 L Est GFR ( Amer) > 60 Est GFR (Non-Af Amer) > 60 Random Glucose 111 H Hemoglobin A1c Lactic Acid Calcium 9.4 Phosphorus Magnesium 2.4 H Total Bilirubin 0.5 AST 30 ALT 30 Alkaline Phosphatase 223 H Ammonia 18 Troponin I Total Protein 8.1 Albumin 4.3 Globulin 3.8 Albumin/Globulin Ratio 1.1 LDL Cholesterol Direct Venous Blood Potassium Urine Opiates Screen Negative Urine Methadone Screen Negative Ur Barbiturates Screen Positive H Ur Phencyclidine Scrn Negative Ur Amphetamines Screen Negative U Benzodiazepines Scrn Negative U Oth Cocaine Metabols Negative U Cannabinoids Screen Negative 03/16/18 03/16/18 03/16/18 15:20 23:11 23:21 WBC RBC Hgb Hct MCV MCH MCHC RDW Plt Count MPV Neut % (Auto) Lymph % (Auto) [place] % (Auto) Eos % (Auto) Baso % (Auto) Neut # (Auto) Lymph # (Auto) [place] # (Auto) Eos # (Auto) Baso # (Auto) PT INR APTT pO2 143 H 87 H VBG pH 7.35 7.38 VBG pCO2 42 46 VBG HCO3 23.1 26.1 VBG Total CO2 24.5 28.6 H VBG O2 Sat (Calc) 100.5 H 98.7 H VBG Base Excess -2.4 L 1.5 VBG Potassium 5.2 4.4 Glucose 108 H 136 H Lactate 1.4 0.8 FiO2 21.0 21.0 Sodium 138.0 138.0 140 Potassium 4.6 Chloride 110.0 H 109.0 H 107 Carbon Dioxide 27 Anion Gap 11 BUN 11 Creatinine 0.6 L Est GFR ( Amer) > 60 Est GFR (Non-Af Amer) > 60 Random Glucose 136 H Hemoglobin A1c Lactic Acid Calcium 9.3 Phosphorus Magnesium Total Bilirubin AST ALT Alkaline Phosphatase Ammonia Troponin I Total Protein Albumin Globulin Albumin/Globulin Ratio LDL Cholesterol Direct Venous Blood Potassium 5.2 4.4 Urine Opiates Screen Urine Methadone Screen Ur Barbiturates Screen Ur Phencyclidine Scrn Ur Amphetamines Screen U Benzodiazepines Scrn U Oth Cocaine Metabols U Cannabinoids Screen 03/17/18 03/17/18 03/17/18 04:50 04:50 04:50 WBC 12.3 H RBC 4.76 Hgb 12.0 Hct 37.5 MCV 78.7 L D MCH 25.3 L MCHC 32.1 L RDW 16.8 H Plt Count 401 H MPV 9.0 Neut % (Auto) 78.3 H Lymph % (Auto) 14.3 L [place] % (Auto) 6.3 Eos % (Auto) 0.8 Baso % (Auto) 0.3 Neut # (Auto) 9.7 H Lymph # (Auto) 1.8 [place] # (Auto) 0.8 Eos # (Auto) 0.1 Baso # (Auto) 0.0 PT INR APTT pO2 VBG pH VBG pCO2 VBG HCO3 VBG Total CO2 VBG O2 Sat (Calc) VBG Base Excess VBG Potassium Glucose Lactate FiO2 Sodium 140 Potassium 4.1 Chloride 105 Carbon Dioxide 27 Anion Gap 12 BUN 12 Creatinine 0.7 Est GFR ( Amer) > 60 Est GFR (Non-Af Amer) > 60 Random Glucose 131 H Hemoglobin A1c Lactic Acid 1.1 Calcium 9.3 Phosphorus 2.9 Magnesium 2.3 Total Bilirubin 0.2 AST 26 ALT 35 Alkaline Phosphatase 199 H Ammonia Troponin I Total Protein 7.7 Albumin 4.0 Globulin 3.6 Albumin/Globulin Ratio 1.1 LDL Cholesterol Direct Venous Blood Potassium Urine Opiates Screen Urine Methadone Screen Ur Barbiturates Screen Ur Phencyclidine Scrn Ur Amphetamines Screen U Benzodiazepines Scrn U Oth Cocaine Metabols U Cannabinoids Screen Assessment & Plan - Assessment and Plan (Free Text) Assessment: delirium depression Plan: hold psychotropics due to altered mental status pt to be seen by psychiatry when she becomes able to participate in the interview
--- NOTE | 2018-03-17 12:57 | CP.CCUPN ---
CCU Subjective - Physician Review Subjective (Free Text): More alert this AM, able to get OOB and sitting in chair, calm and more conversant with appropriate answers, still confused to place and time, sates he has a headache, no nausea, visual changes, dizziness, palpitations, chest discomfort, SOB, nor abdominal discomfort. SBP down to 160-170s with MAPs approx. 110; HR 80s. Afebrile, no fever spike, urine retention noted with need to straight cath overnight. ROS: No other pertinent negs or positives on 10+ system review. PMSFH: All other Nursing and physician documentation reviewed to date; no new pertinent info noted relevant to current medical problems. EXAM- HEENT: no icterus, no gaze preference, fundi not well visualized. NECK: No JVD visible, supple, carotids equal upstroke bilat/no bruit CHEST: decreased BS at the bases, no wheezes audible bilaterally. HEART: regular, distant, S1S2, no rubs or murmurs noted ABD: soft, obese, nontender, no guarding, no organomegaly, BS hypoactive. EXT: trace to +1 leg edema- SCDs on bilat, no calf tenderness or palpable cords, distal pulses intact NEURO: no gross focal motor deficits, + tone in all extremities. SKIN: no rashes, warm and dry LABS: WBC= 12.3 HGB= 12.0 PLTs= 401K Coags : normal Na= 140 K= 4.1 CL= 105 HCO3= 27 BUN/Cr= 12/0.7 BS= 131 AP= 199 AST ALT normal IMPRESSION / MAJOR PROBLEMS NOW: 1. AMS 2 Delirium (hypoactive), r/o metabolic encephalopathy, doubt Sepsis Encephalopathy 2. Hypertensive urgency / Accelerated HTN; no Hypertensive Encephalopathy 3. Hyperkalemia 4. h/o Major Depression 5. COPD PLAN: 1. Able to take PO now, switch off Clonidine patch to PO 0.3 mg Q12H as per home regimen. 2. May need 2nd antiHTN med for control. 3. K levels normalized. 4. ECHO normal, BBB may be old, will hold on further alkalinization. 5. Holding Cymbalta for now as well as other psychoactive meds: Klonapin, Restoril, Gabapentin, Doxylamine, Baclofen, BBTs. 6. Duonebs for any bronchospasm or reactive airways disease exacerbation. 7. Telemetry monitoring, ICU if she becomes more somnolent or needs airway protection.
--- NOTE | 2018-03-17 20:21 | CARD ---
APPROVED REPORT Date of service: 03/17/2018 EKG Measurement Heart [id number] <Conclusion> Normal sinus rhythm Right bundle branch block Left anterior fascicular block Bifascicular block Abnormal ECG
--- NOTE | 2018-03-17 20:22 | CARD ---
APPROVED REPORT Date of service: 03/16/2018 EKG Measurement Heart [id number] <Conclusion> Normal sinus rhythm Possible Left atrial enlargement Right bundle branch block Left anterior fascicular block Bifascicular block Abnormal ECG
--- NOTE | 2018-03-17 20:36 | CARD ---
APPROVED REPORT Date of service: 03/17/2018 EXAM: Two-dimensional and M-mode echocardiogram with Doppler and color Doppler. Other Information Quality : AverageRhythm : Tachycardia INDICATION Abnormal EKG/Arrhythmia 2D DIMENSIONS IVSd1.19 (0.7-1.1cm)LVDd5.19 (3.9-5.9cm) LVOT Diameter2.01 (1.8-2.4cm)PWd1.33 (0.7-1.1cm) IVSs1.47 (0.8-1.2cm)LVDs3.82 (2.5-4.0cm) FS (%) 26.4 %PWs1.55 (0.8-1.2cm) M-Mode DIMENSIONS Left Atrium (MM)3.12 (2.5-4.0cm)IVSd1.15 (0.7-1.1cm) Aortic Root3.74 (2.2-3.7cm)LVDd5.06 (4.0-5.6cm) Aortic Cusp Exc.2.21 (1.5-2.0cm)PWd1.21 (0.7-1.1cm) IVSs1.47 cmFS (%) 38 % LVDs3.15 (2.0-3.8cm)PWs1.71 cm Mitral Valve E/A ratio0.0 TDI E/Lateral E'0.0E/Medial E'0.0 LEFT VENTRICLE The left ventricle is normal size. There is borderline to mild concentric left ventricular hypertrophy. The left ventricular systolic function is normal. The estimated ejection fraction is 60-65% No regional wall motion abnormalities noted.. Transmitral Doppler flow pattern is Grade I-abnormal relaxation pattern. No left ventricle thrombus noted on this study. There is no ventricular septal defect visualized. There is no left ventricular aneurysm. There is no mass noted in the left ventricle. RIGHT VENTRICLE The right ventricle is normal size. There is normal right ventricular wall thickness. The right ventricular systolic function is normal. ATRIA The left atrium size is normal. The right atrium size is normal. The interatrial septum is intact with no evidence for an atrial septal defect. AORTIC VALVE The aortic valve is normal in structure. No aortic regurgitation is present. There is no aortic valvular stenosis. There is no aortic valvular vegetation. MITRAL VALVE The mitral valve is normal in structure. There is no evidence of mitral valve prolapse. There is no mitral valve stenosis. There is no mitral valve regurgitation noted. TRICUSPID VALVE The tricuspid valve is normal in structure. There is no tricuspid valve regurgitation noted. There is no tricuspid valve prolapse or vegetation. There is no tricuspid valve stenosis. PULMONIC VALVE The pulmonary valve is normal in structure. There is no pulmonic valvular regurgitation. There is no pulmonic valvular stenosis. GREAT VESSELS The aortic root is normal in size. The ascending aorta is normal in size. The pulmonary artery is normal. The IVC is not well visualized. PERICARDIAL EFFUSION There is no pericardial effusion. There is no pleural effusion. <Conclusion> There is borderline to mild concentric left ventricular hypertrophy. The estimated ejection fraction is 60-65% Transmitral Doppler flow pattern is Grade I-abnormal relaxation pattern. The left atrium size is normal. There is no tricuspid valve regurgitation noted.
[2018-03-17] MEDS ORDERED: Levalbuterol 1.25 MG/3 ML Inhal Soln UD INH ONE (23:30)
--- NOTE | 2018-03-17 23:33 | CP.PCM.CON ---
History of Present Illness - History of Present Illness History of Present Illness: Asked to consult on miss Peg Lowery, a 58 yr old woman who has a profound history of drug abuse. The history is obtained from the chart because the patient is unable due to mental status to provide an appropriate history. 58 YO female with PMHx of asthma (intubated in the past), HTN, multiple psychiatric conditions including depression was brought to the ER by her children after pt was found moaning and nonverbal. Family was unable to determine when the patient took additional meds. Pt was found somnolent and additional hx was not obtained from ER due to pt condition. ROS: not able to obtain due to patient's mental status. PMHx: asthma (intubated in the past), HTN, multiple psychiatric conditions including depression, [place] ? in the past per pt SurgHx: denies SHx: some days smoker 1/2 a pack a day, denies ETOH and illicit drug use FHx: HTN Allergies: NKDA ON exam: HEENT: normal. CVS: S1 S2 normal. no murmurs Abdomen: bowel sounds normal. Neuro: arouses to sternal rub. PERRL. EOMI. CN 2-12 normal. sleepy and not really answering questions or following commands. moves all extremities. +2 dtr ul and ll bl. TOes downgoing. NO clonus. Past Patient History - Past Medical History & Family History Past Medical History?: Yes - Past Social History Smoking Status: Current Some Days Smoker Alcohol: None Drugs: Denies Home Situation {Lives}: With Family (daughter ) - CARDIAC Hx Cardiac Disorders: Yes Hx Heart Attack: Yes Hx Hypertension: Yes - PULMONARY Hx Respiratory Disorders: Yes Hx Asthma: Yes Hx Pneumonia: Yes Other/Comment: Intubated in the past - MUSCULOSKELETAL/RHEUMATOLOGICAL Hx Falls: No - PSYCHIATRIC Hx Psychophysiologic Disorder: Yes Hx Depression: Yes Hx Substance Use: Yes (Barbituates) - ANESTHESIA Hx Anesthesia: No Meds Allergies/Adverse Reactions: Allergies Allergy/AdvReac Type Severity Reaction Status Date / Time pollen extracts Allergy CONGESTION Verified 03/16/18 11:25 - Medications Medications: Current Medications Acetaminophen (Tylenol 325mg Tab) 650 mg PO Q4 PRN PRN Reason: Headache Last Admin: 03/17/18 18:35 Dose: 650 mg Albuterol/Ipratropium (Duoneb 3 Mg/0.5 Mg (3 Ml) Ud) 3 ml INH RQ4 PRN PRN Reason: Shortness of Breath Last Admin: 03/17/18 17:03 Dose: 3 ml Atorvastatin Calcium (Lipitor) 20 mg PO DAILY [facility] Last Admin: 03/17/18 16:46 Dose: 20 mg Clonidine HCl (Catapres) 0.3 mg PO BID [facility] Last Admin: 03/17/18 18:29 Dose: 0.3 mg Enoxaparin Sodium (Lovenox) 40 mg SC DAILY [facility]; Protocol Hydralazine HCl (Apresoline) 10 mg IV Q6 PRN PRN Reason: Systolic Blood Pressure Last Admin: 03/17/18 05:12 Dose: 10 mg Labetalol HCl (Trandate) 20 mg IVP Q4 PRN PRN Reason: Systolic Blood Pressure Last Admin: 03/17/18 16:19 Dose: 20 mg Levalbuterol HCl (Xopenex) 1.25 mg INH ONCE ONE Stop: 03/17/18 23:31 Nicotine (Nicoderm Cq) 1 patch TD DAILY [facility] Last Admin: 03/17/18 16:19 Dose: 1 patch Pantoprazole Sodium (Protonix Inj) 40 mg IVP DAILY [facility] Last Admin: 03/17/18 08:50 Dose: 40 mg Results - Vital Signs Recent Vital Signs: Last Vital Signs Temp 98.8 F 03/17/18 16:00 Pulse 89 03/17/18 18:29 Resp 22 03/17/18 18:00 BP 172/80 H 03/17/18 18:29 Pulse Ox 97 03/17/18 18:00 - Labs Result Diagrams: 03/18/18 04:50 03/18/18 04:50 Labs: Laboratory Results - last 24 hr 03/16/18 03/17/18 03/17/18 23:21 04:50 04:50 WBC 12.3 H RBC 4.76 Hgb 12.0 Hct 37.5 MCV 78.7 L D MCH 25.3 L MCHC 32.1 L RDW 16.8 H Plt Count 401 H MPV 9.0 Neut % (Auto) 78.3 H Lymph % (Auto) 14.3 L Mercer % (Auto) 6.3 Eos % (Auto) 0.8 Baso % (Auto) 0.3 Neut # (Auto) 9.7 H Lymph # (Auto) 1.8 Mercer # (Auto) 0.8 Eos # (Auto) 0.1 Baso # (Auto) 0.0 Sodium 140 140 Potassium 4.6 4.1 Chloride 107 105 Carbon Dioxide 27 27 Anion Gap 11 12 BUN 11 12 Creatinine 0.6 L 0.7 Est GFR ( Amer) > 60 > 60 Est GFR (Non-Af Amer) > 60 > 60 Random Glucose 136 H 131 H Lactic Acid Calcium 9.3 9.3 Phosphorus 2.9 Magnesium 2.3 Total Bilirubin 0.2 AST 26 ALT 35 Alkaline Phosphatase 199 H Total Protein 7.7 Albumin 4.0 Globulin 3.6 Albumin/Globulin Ratio 1.1 Alpha Fetoprotein 03/17/18 03/17/18 04:50 20:00 WBC RBC Hgb Hct MCV MCH MCHC RDW Plt Count MPV Neut % (Auto) Lymph % (Auto) Mercer % (Auto) Eos % (Auto) Baso % (Auto) Neut # (Auto) Lymph # (Auto) Mercer # (Auto) Eos # (Auto) Baso # (Auto) Sodium Potassium Chloride Carbon Dioxide Anion Gap BUN Creatinine Est GFR ( Amer) Est GFR (Non-Af Amer) Random Glucose Lactic Acid 1.1 Calcium Phosphorus Magnesium Total Bilirubin AST ALT Alkaline Phosphatase Total Protein Albumin Globulin Albumin/Globulin Ratio Alpha Fetoprotein 1.8 Assessment & Plan - Assessment and Plan (Free Text) Assessment: 58 yr old woman whose change in mental status could be attributed to severe encephalopathy from opiod abuse. The risk of stroke or seizure are low, but we may repeat neuroimaging. Plan: 1. CT head 2. EEG Thank you for this interesting consult Our team will follow Dr. Scott James MD DPN Neurology
[2018-03-18 05:48] LABS: BASO # 0.1 K/uL (0.0-0.2); BASO % 0.8 % (0.0-2.0); EOS # 0.2 K/uL (0.0-0.7); HEMOGLOBIN 11.3 g/dL (12.0-16.0); LYMPH # 2.6 K/uL (1.0-4.3); LYMPH % 27.6 % (20.0-40.0); MEAN CELL VOLUME 79.1 fl (81.0-99.0); MEAN CORPUSCULAR HEMOGLOBIN 24.9 pg (27.0-31.0); MEAN CORPUSCULAR HGB CONC 31.5 g/dL (33.0-37.0); MONO % 10.7 % (0.0-10.0); NEUT # 5.4 K/uL (1.8-7.0); NEUT % 58.9 % (50.0-75.0); NRBC % 0.1 % (0.0-0.0); RBC 4.56 Mil/uL (3.80-5.20); RED CELL DISTRIBUTION WIDTH 17.3 % (11.5-14.5); WHITE BLOOD COUNT 9.3 K/uL (4.8-10.8)
[2018-03-18 06:08] LABS: ALB/GLOB RATIO 1.2 (1.0-2.1); ALT/SGPT 25 U/L (9-52); AST/SGOT 29 U/L (14-36); BLOOD UREA NITROGEN 15 mg/dl (7-17); CALCIUM 9.4 mg/dL (8.4-10.2); GFR NON-AFRICAN AMERICAN > 60
[2018-03-18] MEDS: Levalbuterol 1.25 MG/3 ML Inhal Soln UD INH PRN ×2 (06:47→17:10)
--- NOTE | 2018-03-18 08:26 | CP.PCM.PN ---
<Rosey Parson - Last Filed: 03/18/18 11:02> Subjective - Date & Time of Evaluation Date of Evaluation: 03/18/18 Time of Evaluation: 08:24 - Subjective Subjective: No acute overnight events. Pt seen and examined by bedside this AM. Friendly, answering questions, more verbal then previously Denies chest pain, dyspnea, palpitations, headache, blurry vision, n/v. Pt remains afebrile, bp improving Objective - Vital Signs/Intake and Output Vital Signs (last 24 hours): Temp Pulse Resp BP Pulse Ox 98.1 F 81 21 170/74 H 96 03/18/18 04:00 03/18/18 08:00 03/18/18 06:00 03/18/18 08:00 03/18/18 06:00 - Medications Medications: Current Medications Acetaminophen (Tylenol 325mg Tab) 650 mg PO Q4 PRN PRN Reason: Headache Last Admin: 03/18/18 05:47 Dose: 650 mg Atorvastatin Calcium (Lipitor) 20 mg PO DAILY [facility] Last Admin: 03/18/18 08:00 Dose: 20 mg Clonidine HCl (Catapres) 0.3 mg PO BID [facility] Last Admin: 03/18/18 08:00 Dose: 0.3 mg Enoxaparin Sodium (Lovenox) 40 mg SC DAILY [facility]; Protocol Famotidine (Pepcid) 40 mg PO HS [facility] Hydralazine HCl (Apresoline) 10 mg IV Q6 PRN PRN Reason: Systolic Blood Pressure Last Admin: 03/18/18 06:38 Dose: 10 mg Labetalol HCl (Trandate) 20 mg IVP Q4 PRN PRN Reason: Systolic Blood Pressure Last Admin: 03/17/18 16:19 Dose: 20 mg Levalbuterol HCl (Xopenex) 1.25 mg INH Q4H PRN PRN Reason: Shortness of Breath Last Admin: 03/18/18 06:47 Dose: 1.25 mg Nicotine (Nicoderm Cq) 1 patch TD DAILY [facility] Last Admin: 03/18/18 08:00 Dose: 1 patch - Labs Labs: 03/18/18 04:50 03/18/18 04:50 PT 11.3 Seconds (9.8-13.1) 03/16/18 11:50 INR 1.0 03/16/18 11:50 APTT 34.1 Seconds (25.6-37.1) 03/16/18 11:50 - Constitutional Appears: No Acute Distress, Other (on NC 2L) - Head Exam Head Exam: NORMAL INSPECTION - Eye Exam Eye Exam: Normal appearance - Respiratory Exam Respiratory Exam: Clear to Ausculation Bilateral, NORMAL BREATHING PATTERN. absent: Wheezes - Cardiovascular Exam Cardiovascular Exam: REGULAR RHYTHM, +S1, +S2 - GI/Abdominal Exam GI & Abdominal Exam: Distended, Soft, Normal Bowel Sounds. absent: Tenderness - Extremities Exam Extremities Exam: absent: Calf Tenderness, Pedal Edema - Neurological Exam Neurological Exam: Alert, Awake, CN II-XII Intact, Oriented x3 Assessment and Plan (1) Hypertensive urgency Status: Acute (2) Altered mental status Status: Acute (3) Drug ingestion Status: Acute (4) RBBB Status: Chronic - Assessment and Plan (Free Text) Assessment: Assessment/Plan: 58 YO Female with PMHx of asthma (intubated in the past), HTN, multiple psyc hiatric conditions including depression is admitted after ingestion of unknown drug (TCA?), and AMS. Patient is clinically stable, pending transfer to telemetry. AMS -acute, improving -likely 2/2 to Ingestion of drug, Hypertensive encephalopathy -CT head no acute intracranial findings -neurology on board, follow up recs -Utox sig for positive barbiturates -s/p administration of narcan with no resolution of the symptoms Drug ingestion -accidental vs suicidal, AMS -hx of major depression -hold psychotropic meds for now given AMS -psych consulted; recs appreciated EKG changes -wide QRS with RBBB -acute vs chronic -likely 2/2 to drug ingestion, vs old RI? -cardiology consulted, no acute cardio intervention, stable per cardio -echo mild LVH with ED 60-65% HTN Emergency -acute on chronic -likely 2/2 med non-compliance -c/w clonidine, labatalol and hydralazine for Bp management DVT prolx -Lovenox SC -SCDs <Leonard Reynolds - Last Filed: 03/19/18 09:46> Objective - Vital Signs/Intake and Output Vital Signs (last 24 hours): Temp Pulse Resp BP Pulse Ox 98.1 F 80 18 164/92 H 100 03/19/18 07:40 03/19/18 08:29 03/19/18 07:40 03/19/18 08:29 03/19/18 07:40 - Medications Medications: Current Medications Acetaminophen (Tylenol 325mg Tab) 650 mg PO Q4 PRN PRN Reason: Headache Last Admin: 03/18/18 20:35 Dose: 650 mg Acetaminophen/Butalbital/Caffeine (Fioricet) 1 tab PO Q4 PRN PRN Reason: Migraine headache Last Admin: 03/19/18 08:27 Dose: 1 tab Atorvastatin Calcium (Lipitor) 20 mg PO DAILY [facility] Last Admin: 03/19/18 08:29 Dose: 20 mg Clonazepam (Klonopin) 0.5 mg PO DAILY PRN PRN Reason: Anxiety Last Admin: 03/19/18 08:32 Dose: 0.5 mg Clonidine HCl (Catapres) 0.3 mg PO BID [facility] Last Admin: 03/19/18 08:29 Dose: 0.3 mg Enoxaparin Sodium (Lovenox) 40 mg SC DAILY [facility]; Protocol Last Admin: 03/19/18 08:27 Dose: 40 mg Famotidine (Pepcid) 40 mg PO HS [facility] Last Admin: 03/18/18 21:34 Dose: 40 mg Hydralazine HCl (Apresoline) 10 mg IV Q6 PRN PRN Reason: Systolic Blood Pressure Last Admin: 03/18/18 16:34 Dose: 10 mg Labetalol HCl (Trandate) 20 mg IVP Q4 PRN PRN Reason: Systolic Blood Pressure Last Admin: 03/19/18 01:20 Dose: 20 mg Levalbuterol HCl (Xopenex) 1.25 mg INH Q4H PRN PRN Reason: Shortness of Breath Last Admin: 03/19/18 05:08 Dose: 1.25 mg Losartan Potassium (Cozaar) 50 mg PO DAILY [facility] Last Admin: 03/19/18 08:28 Dose: 50 mg Nicotine (Nicoderm Cq) 1 patch TD DAILY [facility] Last Admin: 03/19/18 08:33 Dose: 1 patch Temazepam (Restoril) 30 mg PO HS [facility] Last Admin: 03/19/18 00:37 Dose: 30 mg - Labs Labs: 03/19/18 06:15 03/19/18 06:15 PT 11.3 Seconds (9.8-13.1) 03/16/18 11:50 INR 1.0 03/16/18 11:50 APTT 34.1 Seconds (25.6-37.1) 03/16/18 11:50 Attending/Attestation - Attestation I have personally seen and examined this patient.: Yes I have fully participated in the care of the patient.: Yes I have reviewed all pertinent clinical information, including history, physical exam and plan: Yes
[2018-03-18] MEDS ORDERED: Pneumococcal 23-Valent Vaccine IM ONE (10:16)
[2018-03-18] MEDS ORDERED: Influenza Vaccine (5 YR UP)/PF 60 MCG/0.5 ML SYR IM ONE (10:16)
--- NOTE | 2018-03-18 12:03 | CP.PCM.PN ---
Subjective - Date & Time of Evaluation Date of Evaluation: 03/18/18 Time of Evaluation: 12:02 - Subjective Subjective: Neurology Follow-Up Note: Mrs. Lowery was evaluated this morning in bed. She was transferred out of the ICU this morning. Pt states that she feels great and is eager to go home. She has no complaints at this time. Denies h/a, dizziness, visual changes, chest pain, sob, abd pain, n/v/d. Objective - Vital Signs/Intake and Output Vital Signs (last 24 hours): Temp Pulse Resp BP Pulse Ox 98.5 F 82 20 134/77 97 03/18/18 08:00 03/18/18 08:00 03/18/18 08:00 03/18/18 08:00 03/18/18 08:00 - Medications Medications: Current Medications Acetaminophen (Tylenol 325mg Tab) 650 mg PO Q4 PRN PRN Reason: Headache Last Admin: 03/18/18 05:47 Dose: 650 mg Atorvastatin Calcium (Lipitor) 20 mg PO DAILY [facility] Last Admin: 03/18/18 08:00 Dose: 20 mg Clonidine HCl (Catapres) 0.3 mg PO BID [facility] Last Admin: 03/18/18 08:00 Dose: 0.3 mg Enoxaparin Sodium (Lovenox) 40 mg SC DAILY [facility]; Protocol Famotidine (Pepcid) 40 mg PO HS [facility] Hydralazine HCl (Apresoline) 10 mg IV Q6 PRN PRN Reason: Systolic Blood Pressure Last Admin: 03/18/18 06:38 Dose: 10 mg Labetalol HCl (Trandate) 20 mg IVP Q4 PRN PRN Reason: Systolic Blood Pressure Last Admin: 03/17/18 16:19 Dose: 20 mg Levalbuterol HCl (Xopenex) 1.25 mg INH Q4H PRN PRN Reason: Shortness of Breath Last Admin: 03/18/18 06:47 Dose: 1.25 mg Losartan Potassium (Cozaar) 50 mg PO DAILY [facility] Nicotine (Nicoderm Cq) 1 patch TD DAILY [facility] Last Admin: 03/18/18 08:00 Dose: 1 patch - Labs Labs: 03/18/18 04:50 03/18/18 04:50 PT 11.3 Seconds (9.8-13.1) 03/16/18 11:50 INR 1.0 03/16/18 11:50 APTT 34.1 Seconds (25.6-37.1) 03/16/18 11:50 - Constitutional Appears: Well, Non-toxic, No Acute Distress - Head Exam Head Exam: ATRAUMATIC, NORMAL INSPECTION, NORMOCEPHALIC - Eye Exam Eye Exam: EOMI, Normal appearance, PERRL Pupil Exam: NORMAL ACCOMODATION - ENT Exam ENT Exam: Mucous Membranes Moist - Neck Exam Neck Exam: Full ROM, Normal Inspection - Respiratory Exam Respiratory Exam: NORMAL BREATHING PATTERN - Cardiovascular Exam Cardiovascular Exam: REGULAR RHYTHM (on tele mx) - GI/Abdominal Exam GI & Abdominal Exam: Soft - Extremities Exam Extremities Exam: Full ROM. absent: Calf Tenderness, Pedal Edema - Back Exam Back Exam: Full ROM, NORMAL INSPECTION - Neurological Exam Neurological Exam: Alert, Awake, CN II-XII Intact, Oriented x3, Reflexes Normal Neuro motor strength exam: Left Upper Extremity: 5, Right Upper Extremity: 5, Left Lower Extremity: 5, Right Lower Extremity: 5 Additional comments: Speech clear, fluid No facial asymmetry Strength and sensation equal and intact b/l No tremors, no clonus, toes downgoing Gait steady - Psychiatric Exam Psychiatric exam: Normal Affect, Normal Mood - Skin Skin Exam: Normal Color Assessment and Plan (1) Altered mental status Assessment & Plan: Mrs. Lowery was admitted for AMS after a suspected drug overdose. She is neurologically stable and has no deficits today. -Imaging reviewed; chart reviewed. -Bedside EEG to r/o seizure---pt admits to have had previous EEG that were "normal" but cannot recall when. -Continue current treatment -Notify neuro team of any acute changes. Case discussed with Dr. Machuca Status: Acute
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
[2018-03-18] MEDS ORDERED: Influenza Vaccine 60 mcg/0.5 mL SYR (4YR UP) IM ONE (16:45)
[2018-03-18] MEDS: Enoxaparin 40 mg Syringe SC SCH (16:51)
[2018-03-18] MEDS: Labetalol 5mg/ml (4ml) IVP PRN (17:17)
--- NOTE | 2018-03-18 18:29 | PCM.RRT ---
<Salty Frost - Last Filed: 03/18/18 18:17> INSTRUMENTATION AND CONTROLS TECHNICIAN Nurse Assessment - Situation Location: Telemetry Room Number: 417-2 INSTRUMENTATION AND CONTROLS TECHNICIAN Reason for Call: Hypertension INSTRUMENTATION AND CONTROLS TECHNICIAN Called By: RN - IV IV Inserted during INSTRUMENTATION AND CONTROLS TECHNICIAN?: No - Respiratory Oxygen Delivery Method: Nasal Cannula Received Nebulizer Treatments: No Was the Patient Ventilated with Bag/Mask 100% O2?: No Secretions Suctioned?: No Was the Patient Intubated?: No Was the Patient Placed on a Ventilator?: No - Medication Medications Administered During INSTRUMENTATION AND CONTROLS TECHNICIAN: labeltol 20 mg IV - Diagnostic Test Ordered EKG: Yes Chest X-Ray: No CT Scan: No - Stat Labs Ordered INSTRUMENTATION AND CONTROLS TECHNICIAN Stat Labs Ordered: TROPONIN - Vital Signs Vital Signs: Rapid Response Vital Sign Blood Pressure 190/88 Pulse Rate 95 Respiratory Rate 31 Oxygen Saturation 97 - Time INSTRUMENTATION AND CONTROLS TECHNICIAN Ended Time INSTRUMENTATION AND CONTROLS TECHNICIAN Ended: 17:58 - Vital Signs at end of INSTRUMENTATION AND CONTROLS TECHNICIAN Vital Signs at end of INSTRUMENTATION AND CONTROLS TECHNICIAN: Rapid Response End Vital Sign Blood Pressure 118/62 Pulse Rate 84 Respiratory Rate 30 O2 Sat by Pulse Oximetry 97 - Recommendations INSTRUMENTATION AND CONTROLS TECHNICIAN Level of Care Recommendations: Remain in current setting I.Reason for INSTRUMENTATION AND CONTROLS TECHNICIAN - A) Acute Change in Patient: Subjective: INSTRUMENTATION AND CONTROLS TECHNICIAN called by RN as patient was complaining of acute chest pain and dyspnea with blood pressure noted to be significantly elevated. RN states she had just given patient Xopenex breathing treatment prior to this. Initials Vitals: BP:202/122 HR: 95 02 Sat: 97-99% on rm air PE: Patient appeared moderately distressed, diaphoretic, tachypnic with labored breathing. Cardiopulmonary exam normal. Good air entry BL without wheezing or rales Extremities normal. Interventions: Pt given Labetelol 20mg IVP 12 lead EKG: no acute ischemic changes Labs: Troponin q8 Vitals repeated: BP:110/63 HR: 97 O2 Sat: 99% on rm air Assessment: Pt is a 58 y/o female with hx of multiple psychiatric conditions and prior hx of intentional drug overdose events, admitted for AMS/delerium and hypertensive urgency in setting of possible ingestion of unknown substance (TCA?) with complaints of acute chest pain and dyspnea, noted to have elevated BP. Pt's BP responded to Labetelol and symptoms resolved within 4-5 minutes. Called kiln worker, Dr. Montilla, who recommended blood pressure management. Plan: Continue to monitor vitals. F/u serial troponins. Discussed case with Dr. Aubrey Frost <AubreyKaseykristen Hu - Last Filed: 03/18/18 18:45> INSTRUMENTATION AND CONTROLS TECHNICIAN Nurse Assessment - Vital Signs Vital Signs: Rapid Response Vital Sign Blood Pressure 190/88 Pulse Rate 95 Respiratory Rate 31 Oxygen Saturation 97 - Vital Signs at end of INSTRUMENTATION AND CONTROLS TECHNICIAN Vital Signs at end of INSTRUMENTATION AND CONTROLS TECHNICIAN: Rapid Response End Vital Sign Blood Pressure 118/62 Pulse Rate 84 Respiratory Rate 30 O2 Sat by Pulse Oximetry 97 Attending/Attestation - Attestation I have personally seen and examined this patient.: Yes I have fully participated in the care of the patient.: Yes I have reviewed all pertinent clinical information, including history, physical exam and plan: Yes Notes (Text): Hypertensive Urgency -Bp 190/88- pt had a prn order for Labetalol and RN gave the dose -pt also noted to be very anxious - rpt BP after a few minutes went down to 118 stsolic -EKG done - noted some ST depression in Leads V4 V5 V6 - compared to the one on admission - Serial Troponin - Cardio - Dr Abdelrahman Montilla ( pt's Cardio informed of event )- rec BP control - Dr Kemp - pt's PMD informed
[2018-03-19] MEDS: Levalbuterol 1.25 MG/3 ML Inhal Soln UD INH PRN ×3 (00:40→23:01)
[2018-03-19] MEDS: Labetalol 5mg/ml (4ml) IVP PRN (01:20)
[2018-03-19] MEDS: Apap-Butalbital-Caffeine 325-50-40mg Tab PO PRN ×4 (01:22→21:42)
[2018-03-19 07:37] LABS: BASO % 0.5 % (0.0-2.0); EOS # 0.3 K/uL (0.0-0.7); HEMOGLOBIN 11.2 g/dL (12.0-16.0); LYMPH # 1.7 K/uL (1.0-4.3); LYMPH % 19.3 % (20.0-40.0); MEAN CELL VOLUME 79.2 fl (81.0-99.0); MEAN CORPUSCULAR HGB CONC 31.6 g/dL (33.0-37.0); MEAN PLATELET VOLUME 8.9 fl (7.2-11.7); MONO # 0.9 K/uL (0.0-0.8); MONO % 9.8 % (0.0-10.0); NEUT # 5.9 K/uL (1.8-7.0); NEUT % 67.4 % (50.0-75.0); RBC 4.49 Mil/uL (3.80-5.20); RED CELL DISTRIBUTION WIDTH 17.2 % (11.5-14.5); WHITE BLOOD COUNT 8.8 K/uL (4.8-10.8)
[2018-03-19 07:50] LABS: BLOOD UREA NITROGEN 15 mg/dl (7-17); CALCIUM 9.4 mg/dL (8.4-10.2); GFR NON-AFRICAN AMERICAN > 60
[2018-03-19] MEDS: Enoxaparin 40 mg Syringe SC SCH (08:27)
--- NOTE | 2018-03-19 08:56 | CP.PCM.PN ---
Subjective - Date & Time of Evaluation Date of Evaluation: 03/19/18 Time of Evaluation: 08:20 - Subjective Subjective: had an episode of chest pain yesterday. today has anxiety Objective - Vital Signs/Intake and Output Vital Signs (last 24 hours): Temp Pulse Resp BP Pulse Ox 98.1 F 80 18 164/92 H 100 03/19/18 07:40 03/19/18 08:29 03/19/18 07:40 03/19/18 08:29 03/19/18 07:40 - Medications Medications: Current Medications Acetaminophen (Tylenol 325mg Tab) 650 mg PO Q4 PRN PRN Reason: Headache Last Admin: 03/18/18 20:35 Dose: 650 mg Acetaminophen/Butalbital/Caffeine (Fioricet) 1 tab PO Q4 PRN PRN Reason: Migraine headache Last Admin: 03/19/18 08:27 Dose: 1 tab Atorvastatin Calcium (Lipitor) 20 mg PO DAILY [facility] Last Admin: 03/19/18 08:29 Dose: 20 mg Clonazepam (Klonopin) 0.5 mg PO DAILY PRN PRN Reason: Anxiety Last Admin: 03/19/18 08:32 Dose: 0.5 mg Clonidine HCl (Catapres) 0.3 mg PO BID [facility] Last Admin: 03/19/18 08:29 Dose: 0.3 mg Enoxaparin Sodium (Lovenox) 40 mg SC DAILY [facility]; Protocol Last Admin: 03/19/18 08:27 Dose: 40 mg Famotidine (Pepcid) 40 mg PO HS [facility] Last Admin: 03/18/18 21:34 Dose: 40 mg Hydralazine HCl (Apresoline) 10 mg IV Q6 PRN PRN Reason: Systolic Blood Pressure Last Admin: 03/18/18 16:34 Dose: 10 mg Labetalol HCl (Trandate) 20 mg IVP Q4 PRN PRN Reason: Systolic Blood Pressure Last Admin: 03/19/18 01:20 Dose: 20 mg Levalbuterol HCl (Xopenex) 1.25 mg INH Q4H PRN PRN Reason: Shortness of Breath Last Admin: 03/19/18 05:08 Dose: 1.25 mg Losartan Potassium (Cozaar) 50 mg PO DAILY [facility] Last Admin: 03/19/18 08:28 Dose: 50 mg Nicotine (Nicoderm Cq) 1 patch TD DAILY [facility] Last Admin: 03/19/18 08:33 Dose: 1 patch Temazepam (Restoril) 30 mg PO HS [facility] Last Admin: 03/19/18 00:37 Dose: 30 mg - Labs Labs: 03/19/18 06:15 03/19/18 06:15 PT 11.3 Seconds (9.8-13.1) 03/16/18 11:50 INR 1.0 03/16/18 11:50 APTT 34.1 Seconds (25.6-37.1) 03/16/18 11:50 - Constitutional Appears: Non-toxic - Head Exam Head Exam: NORMAL INSPECTION - Eye Exam Eye Exam: Normal appearance - ENT Exam ENT Exam: Mucous Membranes Moist - Neck Exam Neck Exam: Full ROM - Respiratory Exam Respiratory Exam: NORMAL BREATHING PATTERN - Cardiovascular Exam Cardiovascular Exam: REGULAR RHYTHM - GI/Abdominal Exam GI & Abdominal Exam: Normal Bowel Sounds - Rectal Exam Rectal Exam: Deferred - Extremities Exam Extremities Exam: absent: Pedal Edema - Back Exam Back Exam: NORMAL INSPECTION - Neurological Exam Neurological Exam: Alert - Psychiatric Exam Psychiatric exam: Normal Affect - Skin Skin Exam: Normal Color Assessment and Plan (1) Hypertension Assessment & Plan: needs improved blood pressure control. recommend increasing losartan to 100 mg daily Status: Acute
--- NOTE | 2018-03-19 13:10 | CP.PCM.PN ---
Subjective - Date & Time of Evaluation Date of Evaluation: 03/19/18 Time of Evaluation: 14:19 - Subjective Subjective: Patient seen and examined at bedside denies chest pain, sob, si/hi. wants to go home to son. no other complaints offered at this time Objective - Vital Signs/Intake and Output Vital Signs (last 24 hours): Temp Pulse Resp BP Pulse Ox 97.7 F 68 18 122/73 100 03/19/18 11:49 03/19/18 11:49 03/19/18 11:49 03/19/18 11:49 03/19/18 11:49 - Medications Medications: Current Medications Acetaminophen (Tylenol 325mg Tab) 650 mg PO Q4 PRN PRN Reason: Headache Last Admin: 03/18/18 20:35 Dose: 650 mg Acetaminophen/Butalbital/Caffeine (Fioricet) 1 tab PO Q4 PRN PRN Reason: Migraine headache Last Admin: 03/19/18 08:27 Dose: 1 tab Atorvastatin Calcium (Lipitor) 20 mg PO DAILY [facility] Last Admin: 03/19/18 08:29 Dose: 20 mg Clonazepam (Klonopin) 0.5 mg PO DAILY PRN PRN Reason: Anxiety Last Admin: 03/19/18 08:32 Dose: 0.5 mg Clonidine HCl (Catapres) 0.3 mg PO BID [facility] Last Admin: 03/19/18 08:29 Dose: 0.3 mg Enoxaparin Sodium (Lovenox) 40 mg SC DAILY [facility]; Protocol Last Admin: 03/19/18 08:27 Dose: 40 mg Famotidine (Pepcid) 40 mg PO HS [facility] Last Admin: 03/18/18 21:34 Dose: 40 mg Hydralazine HCl (Apresoline) 10 mg IV Q6 PRN PRN Reason: Systolic Blood Pressure Last Admin: 03/18/18 16:34 Dose: 10 mg Labetalol HCl (Trandate) 20 mg IVP Q4 PRN PRN Reason: Systolic Blood Pressure Last Admin: 03/19/18 01:20 Dose: 20 mg Levalbuterol HCl (Xopenex) 1.25 mg INH Q4H PRN PRN Reason: Shortness of Breath Last Admin: 03/19/18 05:08 Dose: 1.25 mg Losartan Potassium (Cozaar) 50 mg PO DAILY [facility] Last Admin: 03/19/18 08:28 Dose: 50 mg Nicotine (Nicoderm Cq) 1 patch TD DAILY [facility] Last Admin: 03/19/18 08:33 Dose: 1 patch Temazepam (Restoril) 30 mg PO HS [facility] Last Admin: 03/19/18 00:37 Dose: 30 mg - Labs Labs: 03/19/18 06:15 03/19/18 06:15 PT 11.3 Seconds (9.8-13.1) 03/16/18 11:50 INR 1.0 03/16/18 11:50 APTT 34.1 Seconds (25.6-37.1) 03/16/18 11:50 - Constitutional Appears: Non-toxic, No Acute Distress - Head Exam Head Exam: NORMAL INSPECTION - Eye Exam Eye Exam: Normal appearance - Respiratory Exam Respiratory Exam: NORMAL BREATHING PATTERN - Cardiovascular Exam Cardiovascular Exam: +S1, +S2 - GI/Abdominal Exam GI & Abdominal Exam: Soft - Extremities Exam Extremities Exam: Normal Inspection - Neurological Exam Neurological Exam: Alert, Awake, Oriented x3 - Psychiatric Exam Psychiatric exam: Normal Affect, Normal Mood - Skin Skin Exam: Normal Color, Warm Assessment and Plan - Assessment and Plan (Free Text) Assessment: dx htn depression elevated alk phos plan pending eval for psych medically cleared pending u/s of abdomen, can be done as outpatient
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
[2018-03-19 20:09] VITALS: BP 145/74; RESP 18; TEMP 97.9; O2SAT 99
[2018-03-19 23:37] VITALS: PULSE 77
--- NOTE | 2018-03-20 18:03 | CP.PCM.DIS ---
Provider - Provider Date of Admission: 03/18/18 13:16 Attending physician: Ulises Kemp MD Consults: 03/16/18 11:50 Stroke Team Consult Stat Comment: Consulting Provider: Neurohospitalist Consulting Physician: NEUROHOSP Neurohospitalist for Consult: Kris Machuca Neurohospitalist for Consult: Scott Waldron Reason for Consult: AMS 03/16/18 15:00 Cardiology Consult Stat Comment: drug ingestion Consulting Provider: Ulises Kemp Consulting Physician: Ulises Kemp Reason for Consult: chest pain 03/16/18 19:16 Cardiology Consult Routine Comment: Consulting Provider: Carol Montilla Consulting Physician: Carol Montilla Reason for Consult: wide QRS intervals, drug overdose 03/16/18 19:20 Psychiatry Consult Routine Comment: Consulting Provider: Franco Bain Consulting Physician: Franco Bain Reason for Consult: medication overdose Time Spent in preparation of Discharge (in minutes): 30 Hospital Course - Lab Results Lab Results: Micro Results 03/18/18 08:50 Naris MRSA Culture (Admit) - Final MRSA NOT DETECTED 03/16/18 23:50 Naris MRSA Culture (Admit) - Final MRSA NOT DETECTED Most Recent Lab Values WBC 8.8 K/uL (4.8-10.8) 03/19/18 06:15 RBC 4.49 Mil/uL (3.80-5.20) 03/19/18 06:15 Hgb 11.2 g/dL (12.0-16.0) L 03/19/18 06:15 Hct 35.6 % (34.0-47.0) 03/19/18 06:15 MCV 79.2 fl (81.0-99.0) L 03/19/18 06:15 MCH 25.0 pg (27.0-31.0) L 03/19/18 06:15 MCHC 31.6 g/dL (33.0-37.0) L 03/19/18 06:15 RDW 17.2 % (11.5-14.5) H 03/19/18 06:15 Plt Count 343 K/uL (130-400) 03/19/18 06:15 MPV 8.9 fl (7.2-11.7) 03/19/18 06:15 Neut % (Auto) 67.4 % (50.0-75.0) 03/19/18 06:15 Lymph % (Auto) 19.3 % (20.0-40.0) L 03/19/18 06:15 Brantley % (Auto) 9.8 % (0.0-10.0) 03/19/18 06:15 Eos % (Auto) 3.0 % (0.0-4.0) 03/19/18 06:15 Baso % (Auto) 0.5 % (0.0-2.0) 03/19/18 06:15 Neut # (Auto) 5.9 K/uL (1.8-7.0) 03/19/18 06:15 Lymph # (Auto) 1.7 K/uL (1.0-4.3) 03/19/18 06:15 Brantley # (Auto) 0.9 K/uL (0.0-0.8) H 03/19/18 06:15 Eos # (Auto) 0.3 K/uL (0.0-0.7) 03/19/18 06:15 Baso # (Auto) 0.0 K/uL (0.0-0.2) 03/19/18 06:15 PT 11.3 Seconds (9.8-13.1) 03/16/18 11:50 INR 1.0 03/16/18 11:50 APTT 34.1 Seconds (25.6-37.1) 03/16/18 11:50 pO2 87 mm/Hg (30-55) H 03/16/18 23:11 VBG pH 7.38 (7.32-7.43) 03/16/18 23:11 VBG pCO2 46 mmHg (40-60) 03/16/18 23:11 VBG HCO3 26.1 mmol/L 03/16/18 23:11 VBG Total CO2 28.6 mmol/L (22-28) H 03/16/18 23:11 VBG O2 Sat (Calc) 98.7 % (40-65) H 03/16/18 23:11 VBG Base Excess 1.5 mmol/L (0.0-2.0) 03/16/18 23:11 VBG Potassium 4.4 mmol/L (3.6-5.2) 03/16/18 23:11 Sodium 138.0 mmol/L (132-148) 03/16/18 23:11 Chloride 109.0 mmol/L (98-107) H 03/16/18 23:11 Glucose 136 mg/dL (65-105) H 03/16/18 23:11 Lactate 0.8 mmol/L (0.7-2.1) 03/16/18 23:11 FiO2 21.0 % 03/16/18 23:11 Sodium 140 mmol/l (132-148) 03/19/18 06:15 Potassium 3.7 MMOL/L (3.6-5.0) 03/19/18 06:15 Chloride 102 mmol/L (98-107) 03/19/18 06:15 Carbon Dioxide 30 mmol/L (22-30) 03/19/18 06:15 Anion Gap 12 (10-20) 03/19/18 06:15 BUN 15 mg/dl (7-17) 03/19/18 06:15 Creatinine 0.7 mg/dl (0.7-1.2) 03/19/18 06:15 Est GFR ( Amer) > 60 03/19/18 06:15 Est GFR (Non-Af Amer) > 60 03/19/18 06:15 POC Glucose (mg/dL) 117 mg/dL (65-110) H 03/18/18 17:23 Random Glucose 105 mg/dL (65-105) 03/19/18 06:15 Hemoglobin A1c 6.1 % (4.2-6.5) 03/16/18 11:38 Lactic Acid 1.1 MMOL/L (0.7-2.1) 03/17/18 04:50 Calcium 9.4 mg/dL (8.4-10.2) 03/19/18 06:15 Phosphorus 3.6 mg/dl (2.5-4.5) 03/18/18 04:50 Magnesium 2.4 MG/DL (1.6-2.3) H 03/18/18 04:50 Total Bilirubin 0.4 mg/dl (0.2-1.3) 03/18/18 04:50 AST 29 U/L (14-36) 03/18/18 04:50 ALT 25 U/L (9-52) 03/18/18 04:50 Alkaline Phosphatase 183 U/L (38-126) H 03/18/18 04:50 Ammonia 18 umo/L (11-51) 03/16/18 12:45 Troponin I 0.0660 ng/mL (0.00-0.120) 03/19/18 10:40 Total Protein 7.4 G/DL (6.3-8.2) 03/18/18 04:50 Albumin 4.0 g/dL (3.5-5.0) 03/18/18 04:50 Globulin 3.4 gm/dL (2.2-3.9) 03/18/18 04:50 Albumin/Globulin Ratio 1.2 (1.0-2.1) 03/18/18 04:50 Triglycerides 99 mg/DL (0-149) 03/16/18 11:50 Cholesterol 235 mg/dL (0-199) H 03/16/18 11:50 LDL Cholesterol Direct 145 mg/dL (0-129) H 03/16/18 11:50 HDL Cholesterol 79 MG/DL (30-70) H 03/16/18 11:50 Alpha Fetoprotein 1.8 IU/mL (0.0-7.22) 03/17/18 20:00 Carcinoembryonic Ag 2.6 ng/mL (0-3.0) 03/17/18 04:50 CA 19-9 Antigen 6.0 U/mL (0-37) 03/17/18 04:50 Venous Blood Potassium 4.4 mmol/L (3.6-5.2) 03/16/18 23:11 Salicylates < 1.0 mg/dl 03/16/18 12:00 Urine Opiates Screen Negative (NEGATIVE) 03/16/18 12:38 Urine Methadone Screen Negative (NEGATIVE) 03/16/18 12:38 Acetaminophen < 10.0 ug/ml (10.0-30.0) L 03/16/18 12:00 Ur Barbiturates Screen Positive (NEGATIVE) H 03/16/18 12:38 Ur Phencyclidine Scrn Negative (NEGATIVE) 03/16/18 12:38 Ur Amphetamines Screen Negative (NEGATIVE) 03/16/18 12:38 U Benzodiazepines Scrn Negative (NEGATIVE) 03/16/18 12:38 U Oth Cocaine Metabols Negative (NEGATIVE) 03/16/18 12:38 U Cannabinoids Screen Negative (NEGATIVE) 03/16/18 12:38 Alcohol, Quantitative < 10 mg/dl (0-10) 03/16/18 11:50 - Hospital Course Hospital Course: This is a 58 y/o female with hx of HTN and depression and anxiety was admitted after an accidental intake of excessive amount of psychotropic meds. She was very somnolent at the ER. She was also noted to have accelerated BP. All other labs were normal. Psych and Cardiology were consulted . She was initially at ICU and transferred to telemetry hen stabilized. She was sent home in stable condition and Rx for BP meds were given , after clearaed by the Psychoiatrist Discharge Exam - Head Exam Head Exam: NORMAL INSPECTION - Eye Exam Eye Exam: Normal appearance - Respiratory Exam Respiratory Exam: Clear to PA & Lateral - Cardiovascular Exam Cardiovascular Exam: REGULAR RHYTHM - GI/Abdominal Exam GI & Abdominal Exam: Normal Bowel Sounds - Psychiatric Exam Psychiatric exam: Depressed Discharge Plan - Discharge Medications Prescriptions: Hydralazine HCl 10 mg PO Q6 PRN #30 tablet PRN Reason: Systolic Blood Pressure - Follow Up Plan Condition: FAIR Disposition: DISCHARGE TO PSYCH HOSPITAL Instructions: Altered Mental Status Additional Instructions: .advised to follow up with PMD
--- NOTE | 2018-03-21 09:34 | CARD ---
APPROVED REPORT Date of service: 03/18/2018 EKG Measurement Heart [id number] <Conclusion> Normal sinus rhythm Right bundle branch block Left anterior fascicular block Bifascicular block Abnormal ECG
== END 2018-03-20 00:10 | DRG 918 ==
LOC: H.ER 11:21 → H.ERHOLD 13:04 → H.TEL 16:08 → H.ICU/CCU 19:13 → H.TEL 03-18 10:46 → OBSVTOIN 03-18 13:16
PROVIDERS: ADMIT Family Medicine; ATTEND Family Medicine
PROC: 05HY33Z Insertion of Infusion Device into Upper Vein, Percutaneous Approach (ICD-10-PCS; principal; 2018-03-18)
PROC: 3E02340 Introduction of Influenza Vaccine into Muscle, Percutaneous Approach (ICD-10-PCS; 2018-03-18)
PROC: 3E0234Z Introduction of Serum, Toxoid and Vaccine into Muscle, Percutaneous Approach (ICD-10-PCS; 2018-03-18)
DX: T43.8X1A Poisoning by other psychotropic drugs, accidental (unintentional), initial encounter (principal); I16.1 Hypertensive emergency; I67.4 Hypertensive encephalopathy; I45.2 Bifascicular block; F33.2 Major depressive disorder, recurrent severe without psychotic features; I16.0 Hypertensive urgency; E87.5 Hyperkalemia; F11.10 Opioid abuse, uncomplicated; I45.10 Unspecified right bundle-branch block; F41.9 Anxiety disorder, unspecified; J45.909 Unspecified asthma, uncomplicated; Z91.14 Patient's other noncompliance with medication regimen; R74.8 Abnormal levels of other serum enzymes; F17.210 Nicotine dependence, cigarettes, uncomplicated; I25.2 Old myocardial infarction; Z91.5 Personal history of self-harm; Z23 Encounter for immunization; Z87.01 Personal history of pneumonia (recurrent); Y92.9 Unspecified place or not applicable

== ENCOUNTER 2018-03-20 00:18 | Inpatient (IN) | payer OTHER ==
[2018-03-20 00:23] VITALS: BMI 38.9
[2018-03-20] MEDS ORDERED: Alum-Mag Hydrox-Simethicone Susp (30 mL) PO PRN (00:36)
[2018-03-20] MEDS ORDERED: Magnesium Hydroxide Susp 30 ml UD PO PRN (00:36)
[2018-03-20] MEDS ORDERED: DiphenhydrAMINE 50 mg/ml Inj IM PRN (00:36)
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
[2018-03-20 02:01] VITALS: O2SAT 97
[2018-03-20] MEDS: Levalbuterol 1.25 MG/3 ML Inhal Soln UD INH PRN ×2 (04:30→20:21)
[2018-03-20] MEDS ORDERED: Levalbuterol 1.25 MG/3 ML Inhal Soln UD INH STA (06:14)
[2018-03-20] MEDS: Apap-Butalbital-Caffeine 325-50-40mg Tab PO PRN ×4 (07:46→21:27)
[2018-03-20 09:22] LABS: T4 8.19 ug/dl (5.5-11.0)
--- NOTE | 2018-03-20 12:15 | PCM.PSYCH ---
Initial Psychiatric Evaluation - Initial Psychiatric Evaluation Type of Admission: Voluntary Legal Status: Capacity Chief Complaint (in patient's own words): i was overwhelmed ,it was not a suicidal attempt. Patient's Reaction to Hospitalization: pt is depressed. History of Present Illness and Precipitating Events: This is a 58 yr old female with h/o depression stemming from separation with and conflicts with family and h/o 4 suicudal attempts and admitted as transfer from [facility] where pt was admitted because of overdose on her prescription meds .. pt reports that she has been under a lot of stress due to financial problems and also taking care of an autustic son.and not getting support from daughters.pt says that it was not a suicidal attempt and she took the pills by accident as she is in a lot of pain.pt says that she has to go home as the autistic son need her and she has to take care of him .Support and reassurance provided. Current Medications: Active Medications Generic Name Dose Route Start Last Admin Trade Name Freq PRN Reason Stop Dose Admin Acetaminophen 650 mg 03/20/18 00:36 Tylenol 325mg Tab PO Q4 PRN pain level 4-7 Acetaminophen/Butalbital/Caffeine 1 tab 03/20/18 00:43 03/20/18 07:46 Fioricet PO 1 tab Q4 PRN Administration Migraine headache Al Hydrox/Mg Hydrox/Simethicone 30 ml 03/20/18 00:36 Maalox Plus 30 Ml PO Q4 PRN Dyspepsia Atorvastatin Calcium 20 mg 03/20/18 21:00 Lipitor PO DAILY BRENDAN Clonidine HCl 0.3 mg 03/20/18 09:00 03/20/18 09:01 Catapres PO 0.3 mg BID BRENDAN Administration Diphenhydramine HCl 50 mg 03/20/18 00:36 Benadryl IM Q6 PRN Extrapyramidal S/S Unable PO Diphenhydramine HCl 50 mg 03/20/18 00:36 Benadryl PO Q6 PRN Extrapyramidal Symptoms Duloxetine HCl 30 mg 03/20/18 09:00 03/20/18 09:00 Cymbalta PO 30 mg DAILY BRENDAN Administration Famotidine 40 mg 03/20/18 22:00 Pepcid PO HS BRENDAN Haloperidol 5 mg 03/20/18 00:36 Haldol PO Q4 PRN Agitation Haloperidol Lactate 5 mg 03/20/18 00:36 Haldol IM Q4 PRN Agitation, Unable to Take PO Hydralazine HCl 10 mg 03/20/18 00:30 Apresoline PO Q6H PRN For SBP>160 Levalbuterol HCl 1.25 mg 03/20/18 00:29 03/20/18 04:30 Xopenex INH 1.25 mg RQ4 PRN Administration Shortness of Breath Lorazepam 2 mg 03/20/18 00:36 Ativan IM Q8H PRN Anxiety/Agitation,Unable PO Lorazepam 1 mg 03/20/18 00:36 03/20/18 09:34 Ativan PO 1 mg Q8H PRN Administration Anxiety/Agitation Losartan Potassium 50 mg 03/20/18 09:00 03/20/18 09:00 Cozaar PO 50 mg DAILY BRENDAN Administration Magnesium Hydroxide 30 ml 03/20/18 00:36 Milk Of Magnesia PO HS PRN Constipation Nicotine 1 patch 03/20/18 09:00 03/20/18 09:09 Nicoderm Cq TD Not Given DAILY BRENDAN Temazepam 30 mg 03/20/18 00:28 03/20/18 00:30 Restoril PO 30 mg HS PRN Administration for sleep Past Psychiatric History - Past Psychiatric History Previous Treatment History: None Prior Professional Help: pt is in outpt treatment prescribed cymbalta and neurontin. History of Abuse: pt denies. History of ETOH/Drug Use: denies History of Family Illness: Son is aitistic. Pertinent Medical Hx (Current Medical&Sleep Prob, Allergies): Allergies Allergy/AdvReac Type Severity Reaction Status Date / Time pollen extracts Allergy CONGESTION Verified 03/20/18 00:22 Acetaminophen/Butalbital/Caf [Fioricet] 1 tab PO Q4 PRN 03/16/18 Albuterol Sulfate [Ventolin Hfa] 2 puff IH Q6 PRN 03/16/18 Cholecalciferol [Vitamin D 1000 IU] 1,000 unit PO DAILY 03/16/18 DULoxetine [Cymbalta] 30 mg PO DAILY 03/16/18 Famotidine [Pepcid] 20 mg PO BID 03/16/18 Gabapentin [Neurontin] 100 mg PO Q8 03/16/18 Temazepam [Restoril] 30 mg PO HS 03/16/18 cloNIDine [Catapres] 0.3 mg PO Q12 03/16/18 clonazePAM [Klonopin] 0.5 mg PO DAILY PRN 03/16/18 Atorvastatin [Lipitor] 20 mg PO DAILY tab 03/19/18 Enoxaparin [Lovenox] 40 mg SC DAILY syr 03/19/18 Hydralazine HCl 10 mg PO Q6 PRN #30 tablet 03/19/18 Levalbuterol [Xopenex] 1.25 mg INH Q4H PRN neb 03/19/18 Losartan [Cozaar] 50 mg PO DAILY tab 03/19/18 Nicotine 14 mg/24 hr [Nicoderm CQ] 1 patch TD DAILY patch 03/19/18 cloNIDine [Catapres] 0.3 mg PO BID tab 03/19/18 s/p overdose h/o asthma,HTNand high cholesterol Review of Systems - Review of Systems All systems: reviewed and no additional remarkable complaints except Mental Status Examination - Personal Presentation Personal Presentation: Looks stated age - Affect Affect: Constricted - Motor Activity Motor Activity: Calm - Reliability in Providing Information Reliability in Providing Information: Fair - Speech Speech: Relevant - Mood Mood: Depressed - Formal Thought Process Formal Thought Process: No Impairment - Obsessions/Compulsions Obsessions: No Compulsions: No - Cognitive Functions Orientation: Person, Place, Situation, Time Sensorium: Alert Attention/Concentration: Easily distracted Abstract Thinking: As evidence by abstract perception of proverbs Estimate of Intelligence: Average Judgement: Imparied, as evidence by: Poor judgement, Imparied, as evidence by: Lack of insight into illness Memory: Recent intact, as evidence by: Ability to recall events of the day, Remote intact, as evidenced by: Ability to recall historical events - Risk Risk: Diminished functioning - Strength & Assets Inventory Strength & Assets Inventory: Family support DSM 5 DX - DSM 5 DSM 5 Diagnosis: major depression,severe ,recurrent. - Recommended/Plan of Treatment Treatment Recommendations and Plan of Treatment: will continue to titrate cymbalta 60 mg daily ,restart klonopin and neurontin and engage pt in therapy. hospitalist consult for issues with breathing and other medical issues.. Disposition planning once pt is stabilized .
[2018-03-21] MEDS: Levalbuterol 1.25 MG/3 ML Inhal Soln UD INH PRN ×2 (05:29→17:47)
[2018-03-21] MEDS: Apap-Butalbital-Caffeine 325-50-40mg Tab PO PRN ×4 (05:33→18:41)
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
--- NOTE | 2018-03-21 16:39 | PCM.PYCHPN ---
Psychiatric Progress Note - Psychiatric Progress Note Patient seen today, length of contact: chart reviewed case discussed with team pt. seen Patient Chief Complaint: was at home having multiple stressors including adult 20 yo old son who admittedly has autism and severe ocd, financial stressors. pt admits that was at home, developed headache and anxiety, attempted to take regular medicine, did not obtain relief and repeated additional time laid down and medications took affect (gabapentin, clonazepam and fiurecet ). pt denies this as being a suicide attempt when queried as to history of suicide attempts, pt reports that those incidents were of similar reported circumstances with current presentation. pt speaks of having adult nephew who is currently visiting from [place] and is scheduled to return tomorrow. Pt. admits that her 20 year old son has stayed home alone in the past. pt speaks of wanting to move to [place] with family, pt prevously treated in [facility], currently living in [place], dial maker "prescribing rx". Problems Identified/Issues Discussed: alteration in mood alteration in coping alteration in sleep Medical Problems: per chart Diagnostic Results: per chart per psychiatry per medicine per nursing per manager social media per recreational therapy DSM 5 Symptoms Update: multiple stressors, reported accidental overdose, past reported hx of similar Medication Change: No Medical Record Reviewed: Yes Consults ordered or reviewed: pt being followed by dana pemberton/dalia Mental Status Examination - Cognitive Function Orientation: Person, Place, Situation, Time Attention: WNL Concentration: WNL Association: WN Fund of Knowledge: [facility] Decription of patient's judgement and insights: somewhat impaired ?minimize presentation/circumstances/past reported similar occurrences - Mood Mood: Depressed Additional comments: admits somewhat less - Affect Affect: Constricted - Speech Speech: Soft - Formal Thought Process Formal Thought Process: No Impairment - Suicidal Ideation Suicidal Ideation: No - Homicidal Ideation Homicidal Ideation: No Goal/Treatment Plan - Goal/Treatment Plan Need for Continued Stay: Remain at risks for inpatient hospitalization Progress Toward Problem(s) and Goals/Treatment Plan: inpt milieu adjust medications per clinical status pt has submitted a 48 hr notice due to 03/22/18 at 1526-review with pt will remain inpt with re evaluation in am by primary team-pt does not have reported psychiatry care in [facility] review that team will evaluate and make further decisions in am according to status, should team deem pt is not stable enough for d/c or not enough clinical information to make decision [facility] screener would be called for possible involuntary commitment -review team can as sist pt to call family etc. reportedly pt had visit today from family. pt currently lives in [facility], previously received psychiatric care in [facility], not admittedly psychiatric care in [facility] i discharge planning in progress Estimated Date of D/C: 03/22/18 - Smoking Cessation Smoking Cessation Initiated: Yes
[2018-03-21] MEDS: Albuterol HFA 90 mcg/actuation (8 g) INH PRN (21:26)
[2018-03-22] MEDS: Levalbuterol 1.25 MG/3 ML Inhal Soln UD INH PRN (05:52)
[2018-03-22] MEDS: Apap-Butalbital-Caffeine 325-50-40mg Tab PO PRN ×3 (05:57→14:07)
--- NOTE | 2018-03-22 14:27 | PCM.PYCHPN ---
Psychiatric Progress Note - Psychiatric Progress Note Patient seen today, length of contact: chart reviewed case discussed with team pt. seen Patient Chief Complaint: I am worried about my son Problems Identified/Issues Discussed: pt evaluated with treatment team, presenting with anxious and tearful affect, reported worried about her autistic son , presenting with limited insight into illness, requesting to be discharged, discussed with pt that this is her fourth suicidal attempt in past year and the need for further stabilization and to arrange for outpatient psychiatric and therapeutic follow up prior to discharge , discussed with pt the need to taper down benzodiazepines due to negative impact on mood and cognition pt denied active thoughts of self harm, denied perceptual disturbances DSM 5 Symptoms Update: major depression generalized anxiety disorder Medication Change: Yes (decrease temazepam) Medical Record Reviewed: Yes Mental Status Examination - Cognitive Function Orientation: Person, Place, Situation, Time Attention: WNL Concentration: WNL Association: WNL Fund of Knowledge: WNL - Mood Mood: Depressed, Anxious - Affect Affect: Constricted - Speech Speech: Soft - Formal Thought Process Formal Thought Process: No Impairment - Suicidal Ideation Suicidal Ideation: No - Homicidal Ideation Homicidal Ideation: No Goal/Treatment Plan - Goal/Treatment Plan Need for Continued Stay: Remain at risks for inpatient hospitalization, Severe depression anxiety Progress Toward Problem(s) and Goals/Treatment Plan: decrease remeron to 15mg qhs continue with neurontin, cymbalta and klonopin Cbt , motivational and group therapy neonatal social worker to arrange for discharge with pt leti in [place] Estimated Date of D/C: 03/23/18
[2018-03-22] MEDS: Albuterol HFA 90 mcg/actuation (8 g) INH PRN ×2 (17:44→22:02)
[2018-03-23] MEDS: Apap-Butalbital-Caffeine 325-50-40mg Tab PO PRN ×3 (06:36→15:08)
[2018-03-23] MEDS: Levalbuterol 1.25 MG/3 ML Inhal Soln UD INH PRN ×2 (06:53→20:15)
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
[2018-03-24] MEDS: Apap-Butalbital-Caffeine 325-50-40mg Tab PO PRN ×3 (04:03→13:32)
[2018-03-24] MEDS: Levalbuterol 1.25 MG/3 ML Inhal Soln UD INH PRN (04:18)
[2018-03-24] MEDS: Albuterol HFA 90 mcg/actuation (8 g) INH PRN ×2 (06:39→12:12)
[2018-03-24 08:29] VITALS: BP 167/83; PULSE 80
[2018-03-24 09:12] VITALS: TEMP 96.9
[2018-03-24 13:44] VITALS: RESP 18
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
== END 2018-03-24 15:07 | disposition home or self-care (01) | DRG 885 ==
LOC: H.PSYCH 00:24
PROVIDERS: ADMIT Psychiatry & Neurology Psychiatry; ATTEND Psychiatry & Neurology Psychiatry
PROC: GZHZZZZ Group Psychotherapy (ICD-10-PCS; principal; 2018-03-20)
PROC: GZ58ZZZ Individual Psychotherapy, Cognitive-Behavioral (ICD-10-PCS; 2018-03-20)
DX: F33.2 Major depressive disorder, recurrent severe without psychotic features (principal); F41.1 Generalized anxiety disorder; I10 Essential (primary) hypertension; F17.200 Nicotine dependence, unspecified, uncomplicated; Z59.9 Problem related to housing and economic circumstances, unspecified; R74.8 Abnormal levels of other serum enzymes